=== PATIENT | female | born 1990 | race Caucasian/White ===

== ENCOUNTER 2020-05-19 14:32 | Emergency (ER) | payer OTHER, SELFPAY ==
[2020-05-19 14:34] VITALS: BP 121/70; PULSE 92; RESP 14; TEMP 36.8; O2SAT 99; BMI 24.2
--- NOTE | 2020-05-19 15:17 | ED.VIS.GEN ---
History of Present Illness Chief Complaint: Upper Extremity Injury Informant: Patient Onset: Hours Context: Sudden Onset Timing: Continuous Quality: Crush injury right thumb Location: Right thumb at work Current Severity: Severe Maximum Severity: Severe Worsened by: Injury Relieved by: Nothing Associated Symptoms: Pain Narrative: Patient is a 29-year-old [id number] woman who presents with crush injury to her right thumb. This occurred at work. Tetanus is unknown. She does report hives to amoxicillin/penicillin. She denies paresthesia, anesthesia or inability to move the thumb. She has no other complaints. Prior similar symptoms: No Recent Illness/Hospitalization: No - Past Medical History (1) No significant past medical history Status: Acute Past Medical History - Allergies and Home Meds Allergies/Adverse Reactions: Allergies amoxicillin Allergy (Verified 05/19/20 14:37) Hives Primary Care Physician: Matilde Bailey ENVIRONMENTAL ECONOMIST, ENVIRONMENTAL ECONOMIST-C [Primary Care Provider] - Prior records reviewed: No Past Medical History: None Surgical History: noncontributory Lives: Spouse/ Significant Other Smoking Status: Unknown if ever smoked Drugs: None Physical Exam Vital Signs/Narrative: Vital Signs Temp Pulse Resp BP Pulse Ox 05/19/20 14:34 98.3 F 92 14 121/70 H 99 Inital Vital Signs reviewed: Yes General: Well nourished, Well developed, Acute Distress Head: Normocephalic, Atraumatic Eyes: Perrl, EOMI Cardiovascular: Regular rate, Regular rhythm Respiratory: No distress Extremities: Tenderness Skin: Normal color, Trauma Neurological: Alert, Oriented x3, Cranial nerves II-XII grossly intact Psychological: Normal affect Diagnostic/Tx/Re-eval Chest X-Ray - ED: Read by ED Physician - 3 view x-ray of the thumb reveals a displaced tuft fracture right thumb. There is also soft tissue injury noted. There is no foreign body noted. - Medical Decision Making Tetanus was updated. X-ray was obtained to determine extent of injury. We will need to evaluate once placement is placed in an examination room since she was seen in triage. Procedures Procedure(s): Patient's thumb was anesthetized by infiltration of the the superficial radial nerve, and digital block. Patient required additional anesthesia. The wound was irrigated with 200 cc of normal saline. The radial and ulnar side of the nail was sutured prior to removing the nail because of concern of completing the amputation. 4 stitches were placed on the radial side and 4 stitches were was placed on the ulnar side. The nail was removed. There is a slight defect noted. The nailbed was closed using 5-0 Vicryl. 3 simple direct sutures were placed. The nail was cleansed. The nail was sutured back in place. Patient did receive dose of cephalexin in the emergency department. ED Disposition - Plan for ED Patient: Disposition: Home or Assisted Living Diagnosis: Open fracture of tuft of distal phalanx of right thumb, Nailbed injury, Nail avulsion, finger Instructions: ED Open Hand Fracture (Adult) Prescriptions: Clindamycin HCl [Cleocin] 300 mg PO Q6H #20 capsule Prescription Printed Hydrocodone Bitart/Apap 5-325 [[place] 5MG-325MG] 1 tablet PO Q6H PRN PRN 3 Days #10 tab PRN Reason: Pain Prescription Printed Referrals: Matilde Bailey NP, ENVIRONMENTAL ECONOMIST-C [Primary Care Provider] - [facility]GROUP OF PHYSICIANS] - 2 Days for wound check Jair Lopez MD [STAFF PHYSICIAN] - 2 Days for wound check
--- NOTE | 2020-05-19 15:20 | RAD_ITS ---
STUDY: X-RAY - RIGHT HAND, ATTENTION RIGHT THUMB. REASON FOR EXAM: Female, 29 years old. Injury/Pain TECHNIQUE: 3 view(s) of the finger were obtained. COMPARISON: None. FINDINGS: Normal metacarpal head. Normal metacarpophalangeal joint. Normal proximal phalanx. Avulsion fracture of the tuft distal phalanx of the thumb. Normal distal interphalangeal joint. Overlying soft tissue laceration. RAD/Finger(s) Min 2 Views IMPRESSION: Avulsion fracture of the tuft of the distal phalanx of the thumb with overlying soft tissue laceration. Electronically Signed: Tray Lomeli MD at 15:52 EDT , Service support ,
[2020-05-19] MEDS: Diphth,Pertuss(Acell),Tet Vac 0.5 ML Vial IM (15:55)
[2020-05-19] MEDS: Clindamycin HCl 150 MG Capsule 300 MG PO (15:55)
[2020-05-19] MEDS: Lidocaine 1% (20 ml mdv) 20 ML Vial INFILT (15:56)
[2020-05-19 18:10] VITALS: PULSE 71; RESP 16; O2SAT 100
== END 2020-05-19 18:13 | disposition home or self-care (01) ==
PROVIDERS: Emergency Provider Emergency Medicine; PCP Nurse Practitioner Family
DX: S62.521A Displaced fracture of distal phalanx of right thumb, initial encounter for closed fracture (principal); S61.101A Unspecified open wound of right thumb with damage to nail, initial encounter; X58.XXXA Exposure to other specified factors, initial encounter
CPT/HCPCS: 12002; 73140; 90471; 90715; 99284

== ENCOUNTER → 2020-06-23 16:51 | Outpatient (CLI) | payer OTHER, SELFPAY ==
[2020-06-23 09:13] VITALS: BMI 24.2
[2020-06-28 13:26] LABS: HPV Reflexed? NOT INDICATED
== END ==
PROVIDERS: PCP Nurse Practitioner Family; Visit Provider Obstetrics & Gynecology
DX: Z12.4 Encounter for screening for malignant neoplasm of cervix (principal)
CPT/HCPCS: 88175; G0145

== ENCOUNTER 2020-06-26 03:17 | Emergency (ER) | payer OTHER, SELFPAY ==
[2020-06-23 09:13] VITALS: BMI 24.2
[2020-06-26 03:18] VITALS: BP 104/69; PULSE 62; RESP 16; TEMP 37.2; O2SAT 100; BMI 23.6
--- NOTE | 2020-06-26 03:37 | US_ITS ---
HISTORY: Vaginal bleeding. Concern for miscarriage. 68 images. No comparison imaging. Beta hCG 6300. LMP February 29, 2020. Patient states confirmed IUP on 06/23/2020. Findings: Endovaginal imaging only. The endometrial stripe, within the lower uterine segment is thickened. There is thickening and heterogeneous. This thickened heterogeneous tissue may continue into the endocervical canal. Myometrium is homogeneous. The large masses or fluid collections. No gestational sac. Within the uterine fundus the endometrial stripe is 1.3 cm. The uterus measures 9.8 x 4.3 x 5.4 cm. The right ovary measures 4.2 x 2.8 x 2.7 cm. Color Doppler imaging demonstrates flow to right ovarian parenchyma. The left ovary measures 2.3 x 4.3 x 2.3 cm. Color Doppler imaging demonstrates flow to the left ovarian parenchyma. At no time is a pulse with Doppler image supplied over the endometrial canal, the lower uterine segment, or the endocervical canal. US/Transvaginal w/Preg US IMPRESSION: No IUP demonstrated. Heterogeneous endometrial stripe especially within the lower uterine segment with extension of this tissue in the endocervical canal. The findings likely represent blood. I cannot assess for retained products of conception as color Doppler imaging was not performed over the tissue within the endometrial canal or the endocervical canal. No identifiable gestational sac or fetus are perceived. at [id number] Reported and signed by: Cornel Azul MD Electronically Signed: Cornel Azul MD at 5:25 EDT Tel , Service support ,
--- NOTE | 2020-06-26 03:40 | EDS_ITS ---
HPI HPI - Female History of Present Illness Chief Complaint: Vag Bld, Preg Informant: patient Pain Quality: Positive for Cramping Current Severity: Mild Maximum Severity: Mild Bleeding Issue: Positive for Vaginal bleeding; Negative for Passing clots Onset: Days Timing: Continuous Current Severity: Similar to period Severity: Moderate Associated Symptoms Associated Symptoms: Negative for Dysuria and Frequency Test: Positive Sexually: Positive for Active P: 0 Narrative Narrative: 29-year-old female G1, P0 Ab0. Last menstrual. Was April 10. She saw her GOVERNMENT RELATIONS DIRECTOR Dr. Isabela Troy within the last week. By dates she was supposed to be 9 weeks by ultrasound she was only around 6 weeks with a pole and no heartbeat according to her GOVERNMENT RELATIONS DIRECTOR. Patient started having some vaginal spotting on and then heavy bleeding tonight that awoke her from sleep. She is never had any prior gynecological surgeries. She denies any dysuria. She denies any fever. Mild cramping but otherwise no significant pain. Prior similar symptoms: No Recent Illness/Hospitalization: No PFSH PFSH Medical History Anxiety Infertility associated with anovulation PCOS (polycystic ovarian syndrome) Home Medications sertraline 100 mg PO DAILY 05/19/20 [History Last Taken Unknown] multivitamin no.47-iron fum 27 mg-folate no.1 1 mg-dha 300 mg capsule cap PO 06/15/20 [History Last Taken Unknown] Allergy/AdvReac Type Severity Reaction Status Date / Time amoxicillin Allergy Hives Verified 06/15/20 09:12 Family History Father Hypertension Kidney disease Thyroid cancer Hemochromatosis Grandfather Myocardial infarction Grandmother Hypertension Surgical History Pilonidal cyst Social History adopted: No household members: spouse housing: house current occupational status: employed current occupation: [employer] pets and animals: Yes Smoking Status: Never smoker second hand exposure: No alcohol intake: never substance use type: does not use seatbelt use: always do you feel safe at home: Yes additional social history: - Jarod ROS ROS ED ROS Narrative Patient denies being recently ill. During this early she has had some mild nausea but otherwise is felt well. No fever. No dysuria. Constitutional Constitutional ED: Denies fever(s) Eyes Eyes: Denies change in vision ENT ENT ED: Denies sore throat Cardiovascular Cardiovascular: Denies chest pain Respiratory/Chest Respiratory/Chest: Denies dyspnea Gastrointestinal Gastrointestinal: Reports nausea; Denies abdominal pain or diarrhea Genitourinary Genitourinary ED: Denies dysuria or hematuria Musculoskeletal Musculoskeletal: Denies arthralgias or myalgias Integumentary Denies abscess or rash Neurologic Neurologic: Denies headache(s) Psychiatric Psychiatric: Denies depression Endocrine Endocrinology: Denies polyuria Hematologic/Lymphatic Hematologic/Lymphatic: Denies easy bruising Allergic/Immunologic Allergic/Immunologic ED: Denies urticaria EXAM Physical Exam Narrative Exam Narrative: Well-appearing young female. No acute distress. Vital signs stable afebrile. Initial blood pressure 104/69. HEENT exam normal. Lungs are clear. Heart regular rhythm rate about 60 no murmur. Chest wall nontender. Abdomen soft nontender normal bowel sounds no peritoneal signs. No suprapubic tenderness on exam. Moving all 4 extremities. Back nontender. Neurologically she is awake and alert with no focal motor deficits. Pelvic exam done with female nurse and present in room. External exam unremarkable. Vaginal bleeding in the vaginal vault. No significant clots. No lesions. No discharge. On bimanual exam she had absolutely no uterine nor any adnexal tenderness. This appears to be a miscarriage and not an ectopic by exam. Const Vital Signs: 06/26/20 03:18 Temperature 98.9 F Temperature Source Temporal Pulse Rate 62 Respiratory Rate 16 Blood Pressure 104/69 Blood Pressure Mean 80 Pulse Ox 100 Oxygen Delivery Method Room Air Positive well nourished and well developed General Appearance ED: well developed HEENT Negative for trauma Eyes PERRL and EOMs intact bilaterally Neck no lymphadenopathy and supple Chest Wall inspection of chest normal Resp normal respiratory effort and clear to auscultation bilaterally Cardio regular rate, regular rhythm and no murmurs GI normal to inspection, nondistended, normoactive bowel sounds, soft to palpation, non-tender and non-distended Auscultation: normoactive bowel sounds no CVA tenderness External Female Exam: normal appearance of the urethra Speculum Exam - Vagina: Negative for vaginal tenderness Speculum Exam - Cervix: cervical os open and cervical bleeding; Negative for tissue present in the cervical os Bimanual Exam - Vag & Uterus: normal bimanual exam, normal vaginal palpation, normal cervical palpation and uterus non-tender; Negative for cervical motion tenderness, cervical tenderness, uterus tender or uterus absent Bimanual Exam - Adnexa, Other: normal adnexae Back/Spine no CVA tenderness Extremity normal to inspection Neuro oriented x3 Sensorium / Orientation: alert, oriented to person, oriented to place and oriented to time Psych mental status grossly normal Skin no rashes or lesions noted MDM MDM MDM Narrative Medical decision making narrative: 29-year-old female G1, P0 Ab0. Last menstrual period 04/10/2020. Started having spotting on . Heavier vaginal bleeding tonight. Other than mild cramping no pain. Spoke with her GOVERNMENT RELATIONS DIRECTOR prior to the patient's arrival concern is for miscarriage. She will have an ultrasound and screening labs obtained. Clinical impression: Acute vaginal bleeding secondary to acute spontaneous Lab Data Attestation: I reviewed the patient's lab results. Lab results narrative: CBC is unremarkable hemoglobin is 12.4. Normal platelets. Labs: Laboratory Results - last 24 hr 06/26/20 06/26/20 06/26/20 03:22 03:22 03:22 WBC 11.8 H RBC 4.31 Hgb 12.4 Hct 36.3 L MCV 84.2 MCH 28.8 MCHC 34.2 RDW Std Deviation 39.8 RDW Coeff of Samir 12.8 Plt Count 335 MPV 9.0 HCG, Quant 6300 H Blood Type O POSITIVE CBC unremarkable hemoglobin 12.4. Patient's blood type is O+. And quant is 6300. On repeat exam at 5:28 AM she is resting comfortably. She has had continued bleeding but at this time its not real heavy. She is not currently having any significant pain. Awaiting ultrasound results. Pelvic ultrasound shows no signs of an intrauterine . Read by the radiologist. Repeat exam the patient is doing well at 5:40 AM. I discussed with her GOVERNMENT RELATIONS DIRECTOR Dr. Rajesh Parks. Patient will get a dose of p.o. Cytotec. She and her are comfortable with her being discharged home. They already have a scheduled appointment see Dr. Rajesh Parks Lm morning who is also comfortable with the plan. Patient knows return if she is feeling worse or has heavier bleeding Radiography Diagnostic Testing: Radiology Impression Obstetrics Ultrasound 06/26/20 03:37 IMPRESSION: No IUP demonstrated. Heterogeneous endometrial stripe especially within the lower uterine segment with extension of this tissue in the endocervical canal. The findings likely represent blood. I cannot assess for retained products of conception as color Doppler imaging was not performed over the tissue within the endometrial canal or the endocervical canal. No identifiable gestational sac or fetus are perceived. at 0526 Reported and signed by: Cornel Azul MD Electronically Signed: Cornel Azul MD at 5:25 EDT Tel , Service support , Discharge Plan Triage Chief Complaint: Vag Bld, Preg ED Provider: Brandon Lemus Dx/Rx/DC Orders Clinical Impression: Complete miscarriage Instructions: ED MISCARRIAGE Completed Prescriptions: No Action PNV-DHA 27 mg iron-1 mg -300 mg capsule PO RF: 0 sertraline 100 MG tablet 100 mg PO DAILY RF: 0 Primary Care Provider: Matilde Bailey NP Referrals: Isabela Troy MD [STAFF PHYSICIAN] - 1 Day (Keep your scheduled appointment to see Dr. Isabela Troy on Saturday.) Matilde Bailey PL SQL DEVELOPER, PL SQL DEVELOPER-C [Primary Care Provider] - Activity Restrictions/Additional Instructions: Follow-up with your GOVERNMENT RELATIONS DIRECTOR on Saturday. Rest and relax Saturday at home. No heavy lifting or exercise. Plenty of fluids and rest. Tylenol and/or Motrin for any pain. Return to the emergency department if you are feeling significantly worse, heavier bleeding, passing large clots or feel lightheaded or dizzy. Disposition Disposition: Home, self care
[2020-06-26 03:49] LABS: Hematocrit 36.3 % (37-47); Hemoglobin 12.4 g/dL (12.0-15.0); Mean Corp Hgb Conc 34.2 g/dL (32-36); Mean Corpuscular Hgb 28.8 pg (27.0-32.0); Mean Corpuscular Volume 84.2 fL (81-99); Platelet Count 335 K/mm3 (150-450); RBC Distribution Width CV 12.8 % (11.6-14.6); RBC Distribution Width SD 39.8 fl (35.1-43.9); Red Blood Count 4.31 M/mm3 (4.2-5.4); White Blood Count 11.8 K/mm3 (4.4-11.0)
[2020-06-26 04:36] LABS: hCG Titer Quant., Serum 6300 mIU/mL (1-3)
[2020-06-26] MEDS: miSOPROStol 200 MCG Tablet 800 MCG PO (05:59)
[2020-06-26 06:07] VITALS: BP 102/65; PULSE 70; RESP 16; O2SAT 100
== END 2020-06-26 06:07 | disposition home or self-care (01) ==
PROVIDERS: Emergency Provider Emergency Medicine; PCP Nurse Practitioner Family
DX: O03.9 Complete or unspecified spontaneous abortion without complication (principal)
CPT/HCPCS: 76817; 84702; 85027; 86900; 86901; 99284; A4216

== ENCOUNTER → 2020-07-21 11:25 | Outpatient (CLI) | payer OTHER, SELFPAY ==
[2020-07-21 11:09] VITALS: BMI 23.3
[2020-07-21 12:40] LABS: hCG Titer Quant., Serum 3 mIU/mL (1-3)
== END ==
PROVIDERS: PCP Nurse Practitioner Family; Referring Provider Obstetrics & Gynecology; Visit Provider Obstetrics & Gynecology
DX: O03.9 Complete or unspecified spontaneous abortion without complication (principal); Z3A.00 Weeks of gestation of pregnancy not specified
CPT/HCPCS: 36415; 84702

== ENCOUNTER → 2020-09-10 10:39 | Outpatient (CLI) | payer OTHER, SELFPAY ==
[2020-07-21 11:09] VITALS: BMI 23.3
[2020-09-12 07:51] LABS: Progesterone Level 0.31 ng/mL (See Comment)
== END ==
PROVIDERS: PCP Nurse Practitioner Family; Referring Provider Obstetrics & Gynecology; Visit Provider Obstetrics & Gynecology
DX: E28.2 Polycystic ovarian syndrome (principal)
CPT/HCPCS: 36415; 84144

== ENCOUNTER → 2020-11-01 12:55 | Outpatient (CLI) | payer OTHER, SELFPAY ==
[2020-11-01 14:35] LABS: Progesterone Level 0.46 ng/mL (See Comment)
== END ==
PROVIDERS: PCP Nurse Practitioner Family; Referring Provider Obstetrics & Gynecology; Visit Provider Obstetrics & Gynecology
DX: E28.2 Polycystic ovarian syndrome (principal)
CPT/HCPCS: 36415; 84144

== ENCOUNTER → 2021-02-04 09:49 | Outpatient (CLI) | payer OTHER, SELFPAY | PROVIDERS: PCP Nurse Practitioner Family; Referring Provider Obstetrics & Gynecology; Visit Provider Obstetrics & Gynecology | DX: Z32.01 Encounter for pregnancy test, result positive (principal) | CPT/HCPCS: 36415; 84702 ==

== ENCOUNTER → 2021-02-06 18:26 | Outpatient (CLI) | payer OTHER, SELFPAY | PROVIDERS: PCP Nurse Practitioner Family; Visit Provider Obstetrics & Gynecology | DX: Z32.01 Encounter for pregnancy test, result positive (principal) | CPT/HCPCS: 36415; 84702 ==

== ENCOUNTER → 2021-02-09 09:43 | Outpatient (CLI) | payer OTHER, SELFPAY ==
--- NOTE | 2021-02-09 09:45 | US_ITS ---
STUDY: FIRST TRIMESTER OBSTETRICAL ULTRASOUND REASON FOR EXAM: Female, 30 years old dating. Irregular cycles. LMP: 12/11/2020 TECHNIQUE: Transabdominal TECHNICAL QUALITY: Adequate. PRIOR ULTRASOUND: None. FINDINGS: There is visualization of a single gestational sac in a normal intrauterine position. The mean sac diameter (MSD) measures 3.89 cm, indicating an estimated gestational age (EGA) of 9 weeks, 1 days. The gestational sac shape is within normal limits. There is a visualized yolk sac. The yolk sac measures 4.7 mm. The placenta is non-visualized. There is visualization of a live embryo. The crown-rump length (CRL) measures 2.02 cm, indicating an estimated gestational age (EGA) of 8 weeks, 3 days. There is demonstrated cardiac activity with a heart rate of 173 bpm. The estimated gestation age (EGA) by LMP is 10 weeks, 4 days. The estimated date of delivery (YUNG) by LMP is 09/03/2021. The estimated gestation age (EGA) by US is 8 weeks, 5 days. The estimated date of delivery (YUNG) by US is 09/16/2021. The uterus measures 10.3 cm x 7.8 cm x 5.6 cm. There is no demonstrated uterine fibroid. The cervix is closed. The right ovary measures 3.4 cm x 2.4 cm x 2.4 cm. There is no right ovarian cyst. There is no visualized right adnexal mass or complex lesion. The left ovary measures 3.7 cm x 2.5 cm x 3.5 cm. There is no left ovarian cyst. There is no visualized left adnexal mass or complex lesion. There is no fluid in the cul de sac. US/Init OB < 14Wks US IMPRESSION: Single live intrauterine gestation with a mean gestational age of 8 weeks and 5 days. Electronically Signed: Tray Lomeli MD at 11:02 EST , Service support ,
== END ==
PROVIDERS: PCP Nurse Practitioner Family; Referring Provider Obstetrics & Gynecology; Visit Provider Obstetrics & Gynecology
DX: Z34.91 Encounter for supervision of normal pregnancy, unspecified, first trimester (principal)
CPT/HCPCS: 76801

== ENCOUNTER 2021-03-01 14:58 | Outpatient (CLI) | payer OTHER, SELFPAY ==
[2021-03-01 16:06] LABS: NATERA MAILED SPECIMEN
[2021-03-04 20:08] LABS: Chlamydia By Nucleic Acid AMP Negative (Negative)
[2021-03-05 07:55] LABS: Gonococcus By Nucleic Acid AMP Negative (Negative)
== END 2021-03-01 23:59 | disposition short-term general hospital (02) ==
PROVIDERS: PCP Nurse Practitioner Family; Referring Provider Obstetrics & Gynecology; Visit Provider Obstetrics & Gynecology
DX: Z34.90 Encounter for supervision of normal pregnancy, unspecified, unspecified trimester (principal)
CPT/HCPCS: 36415; 87491; 87591

== ENCOUNTER 2021-03-22 14:17 | Outpatient (CLI) | payer OTHER, SELFPAY ==
[2021-03-22 14:30] LABS: Absolute Lymphocyte Count 1.52 X10^3/uL (0.83-4.51); Absolute Neutrophil Count 3.2 X10^3/uL (2.0-7.7); Basophil# 0.02 X10^3/uL; Basophil% 0.4 % (0-1); Eosinophil# 0.14 X10^3/uL; Eosinophils% 2.7 % (0-5); Hematocrit 33.6 % (37-47); Hemoglobin 12.1 g/dL (12.0-15.0); Lymphocyte # 1.52 X10^3/ul (0.83-4.51); Mean Corpuscular Hgb 29.5 pg (27.0-32.0); Mean Platelet Vol. 8.6 fl (6.2-12.0); Monocyte# 0.34 X10^3/uL; Monocyte% 6.5 % (0-10); NRBC Flagged by Analyzer 0 % (0-5); Neutrophil # 3.22 X10^3/uL (2.7-7.7); Neutrophil % 61.2 % (47-70); Platelet Count 264 K/mm3 (150-450); RBC Distribution Width CV 13.1 % (11.6-14.6); RBC Distribution Width SD 39.2 fl (35.1-43.9); White Blood Count 5.3 K/mm3 (4.4-11.0)
[2021-03-22 15:45] LABS: HIV - WCH Non-Reactive (Nonreactive); Hepatitis B Surface Antigen Non-Reactive (Nonreactive); Hepatitis C Antibody Non-Reactive (Nonreactive); Rubella IgG Reactive (Nonreactive); Syphilis Antibodies Non-reactive
[2021-03-22 18:13] LABS: Amphetamine Urine VISTA NEGATIVE (<1000 ng/mL); Barbiturate Urine VISTA NEGATIVE (< 200 ng/mL); Benzodiazepine Urine VISTA NEGATIVE (< 200 ng/mL); Cocaine Urine VISTA NEGATIVE (< 300 ng/mL); Ecstacy Urine VISTA NEGATIVE (< 500 ng/mL); Methadone Urine VISTA NEGATIVE (< 300 ng/mL); PCP Urine VISTA NEGATIVE (< 25 ng/mL); THC Urine VISTA NEGATIVE (< 50 ng/mL); Vista UDS pH Range 6
== END 2021-03-22 23:59 | disposition short-term general hospital (02) ==
LOC: PAVLAB 14:18
PROVIDERS: PCP Nurse Practitioner Family; Referring Provider Obstetrics & Gynecology; Visit Provider Obstetrics & Gynecology
DX: Z34.90 Encounter for supervision of normal pregnancy, unspecified, unspecified trimester (principal)
CPT/HCPCS: 36415; 80307; 85025; 86703; 86762; 86780; 86803; 86850; 86900; 86901; 87086; 87340

== ENCOUNTER 2021-06-15 13:55 | Outpatient (CLI) | payer OTHER, SELFPAY ==
[2021-06-15 14:21] LABS: Absolute Lymphocyte Count 1.76 X10^3/uL (0.83-4.51); Absolute Neutrophil Count 7.9 X10^3/uL (2.0-7.7); Basophil# 0.06 X10^3/uL; Basophil% 0.6 % (0-1); Eosinophil# 0.47 X10^3/uL; Eosinophils% 4.4 % (0-5); Hematocrit 34.7 % (37-47); Hemoglobin 11.7 g/dL (12.0-15.0); Lymphocyte # 1.76 X10^3/ul (0.83-4.51); Lymphocyte % 16.3 % (19-41); Mean Corp Hgb Conc 33.7 g/dL (32-36); Mean Platelet Vol. 8.7 fl (6.2-12.0); Monocyte% 4.6 % (0-10); NRBC Flagged by Analyzer 0 % (0-5); Neutrophil # 7.91 X10^3/uL (2.7-7.7); Neutrophil % 73.5 % (47-70); Platelet Count 277 K/mm3 (150-450); RBC Distribution Width CV 13.7 % (11.6-14.6); RBC Distribution Width SD 44.5 fl (35.1-43.9); White Blood Count 10.8 K/mm3 (4.4-11.0)
[2021-06-15 14:32] LABS: Glucose Challenge Gest 1H 50g 137 mg/dL (70-140)
== END 2021-06-15 23:59 | disposition home or self-care (01) ==
LOC: PAVLAB 13:55
PROVIDERS: PCP Nurse Practitioner Family; Referring Provider Nurse Practitioner Women's Health; Visit Provider Nurse Practitioner Women's Health
DX: Z13.1 Encounter for screening for diabetes mellitus (principal)
CPT/HCPCS: 36415; 82950; 85025

== ENCOUNTER → 2021-06-29 | Outpatient (CLI) | payer OTHER, SELFPAY ==
[2021-06-29 10:30] LABS: Glucose GTT-Gestation. Fasting 80 mg/dL (<105)
[2021-06-29 11:40] LABS: Glucose GTT-Gestational 1 Hr 147 mg/dL (<190)
[2021-06-29 12:32] LABS: Glucose GTT-Gestational 2 Hr 117 mg/dL (<165)
[2021-06-29 14:14] LABS: Glucose GTT-Gestational 3 Hr 91 L (<145)
== END | disposition home or self-care (01) ==
LOC: LAB 09:51
PROVIDERS: PCP Nurse Practitioner Family; Visit Provider Obstetrics & Gynecology
DX: O99.810 Abnormal glucose complicating pregnancy (principal)
CPT/HCPCS: 36415; 82951; 82952

== ENCOUNTER → 2021-08-25 | Outpatient (CLI) | payer OTHER, SELFPAY | END | disposition home or self-care (01) | PROVIDERS: PCP Nurse Practitioner Family; Referring Provider Obstetrics & Gynecology; Visit Provider Obstetrics & Gynecology | DX: Z34.90 Encounter for supervision of normal pregnancy, unspecified, unspecified trimester (principal) | CPT/HCPCS: 87081 ==

== ENCOUNTER 2021-09-12 08:57 | Inpatient (IN) | payer OTHER, SELFPAY ==
[2021-09-12] VITALS (43 sets, daily range): BP systolic 105–149; BP diastolic 56–97; PULSE 63–102; TEMP 36.4–37; O2SAT 78–100; BMI 31.4
[2021-09-12 08:57] LABS: ROM Internal Control Test YES-OK TO RESULT pt. (Internal QC); ROM Patient Test POSITIVE (Negative)
--- NOTE | 2021-09-12 09:03 | HP.PCM.OB_ITS ---
HPI - General General Date of Admission: 09/12/21 HPI Narrative AMPARO YOUNG, is a 31 y/o @ 39 weeks 3 days who presents to L&D with leaking fluid and contraction pain 06/04. Her ROM plus was noted to be positive. 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 PCOS (polycystic ovarian syndrome) Supervision of normal Home Medications sertraline 100 mg tablet 100 mg PO DAILY 05/19/20 [History Last Taken Unknown] multivitamin no.47-iron fum 27 mg-folate no.1 1 mg-dha 300 mg capsule (PNV-DHA) cap PO 06/15/20 [History Last Taken Unknown] ferrous sulfate 325 mg (65 mg iron) tablet 325 mg PO DAILY 05/05/21 [History Last Taken Unknown] Allergy/AdvReac Type Severity Reaction Status Date / Time amoxicillin Allergy Hives Verified 09/01/21 15:01 Family History Father Hypertension Kidney disease Thyroid cancer Hemochromatosis Grandfather Myocardial infarction Grandmother Hypertension Surgical History Pilonidal cyst Social History adopted: No household members: spouse housing: house current occupational status: employed current occupation: [employer] pets and animals: Yes Smoking Status: Never smoker second hand exposure: No alcohol intake: never substance use type: does not use seatbelt use: always do you feel safe at home: Yes additional social history: - Jarod History 2 Elective abortions Hx Para 0 Spontaneous abortions 1 Hx # Term Pregnancies Ectopic pregnancies Hx # Pregnancies Multiple births # of living children Visit Details Expected Delivery Route/Plan Labor Preferences- CB/BF classes: [] labor support person: [] labor intervention preferences: [] pain management options preferred: [] cut cord/dad catch: [] : [] PP control planned: [] discussed possible routes of delivery and associated risks: [] special requests: [] Plans Covid status: [] Flu vaccine: [] Tdap vaccine: [] Rhogam: [] LARC form signed: [] Problem list reviewed and updated with the most current plan of care details and appropriate orders placed. Relevant counseling for the gestational age provided. Continue routine care and follow up unless otherwise noted in visit notes/problem list details OB Flowsheet Initial Weight: Not Recorded Date -?-?-?-?-?-?-?-?-?-?-?-?- EGA Weight BP Urine Prot -?-?-?-?-?-?-?-?-?-?-?-?- Glucose FHR FuHt Pres Dilation -?-?-?-?-?-?-?-?-?-?-?-?- Effaced St Visit Note 03/01/21 -?-?-?-?-?-?-?-?-?-?-?--?- 11w 4d 125 lb 120/82 -?-?-?-?-?-?-?-?-?-?-?-?- 145 -?-?-?-?-?-?-?-?-?-?-?-?- SM- no vb crampi ng doing well 03/22/21 -?-?-?-?-?-?-?-?-?-?-?-?- 14w 4d 124 lb 8 oz Negative -?-?-?-?-?-?-?-?-?-?-?-?- Negative 135 -?-?-?-?-?-?-?-?-?-?-?-?- JV- no lof, vagi nal bleeding, or cramping. pt has a cold but did not test for covid. had a lot of congestion and some nausea over a week ago. plan to take baby asa in the case it was covid. 04/19/21 -?-?-?-?-?-?-?-?-?-?-?-?- 18w 4d 133 lb 6 oz 120/78 Nega tive -?-?-?-?-?-?-?-?-?-?-?-?- Negative 140 -?-?-?-?-?-?-?-?-?-?-?-?- JV- no cramping or bleeding, no complaints. ultrasound scheduled for 04/27. 05/05/21 -?-?-?-?-?-?-?-?-?-?-?-?- 20w 6d 112/64 -?-?-?-?-?-?-?-?-?-?-?-?- 140 -?-?-?-?-?-?-?-?-?-?-?-?- SM- no vb lof co dec fm today 05/18/21 -?-?-?-?-?-?-?-?-?-?-?-?- 22w 5d 139 lb 2 oz 110/60 Nega tive -?-?-?-?-?-?-?-?-?-?-?-?- Negative 143 -?-?-?-?-?-?-?-?-?-?-?-?- MH-No VB, LOF. G ood FM. Reviewed anatomy US. 06/15/21 -?-?-?-?-?-?-?-?-?-?-?-?- 26w 5d 147 lb 120/80 Negative -?-?-?-?-?-?-?-?-?-?-?-?- Negative 130 -?-?-?-?-?-?-?-?-?-?-?-?- JV- no lof, vagi nal bleeding, or dec fm. 1 cm lesion that is flat yet warty appearing on the left breast overlying inferior aspect of the nipple. pt states that this is growing since she got . 06/29/21 -?-?-?-?-?-?-?-?-?-?-?-?- 28w 5d 151 lb 2 oz 126/78 Nega tive -?-?-?-?-?-?-?-?-?-?-?-?- Negative 145 -?-?-?-?-?-?-?-?-?-?-?-?- JV- no lof, vagi nal bleeding, or dec fm. JV- no lof, vaginal bleeding , or dec fm. normal 3 hr gtt 07/14/21 -?-?-?-?-?-?-?-?-?-?-?-?- 30w 6d 156 lb 128/84 Negative -?-?-?-?-?-?-?-?-?-?-?-?- Negative 150 -?-?-?-?-?-?-?-?-?-?-?-?- JV- no lof, vagi nal bleeding ,or de fm. no complaints today. 07/28/21 -?-?-?-?-?-?-?-?-?-?-?-?- 32w 6d 160 lb 8 oz 127/79 Nega tive -?-?-?-?-?-?-?-?-?-?-?-?- Negative 161 32 Cephalic -?-?-?-?-?-?-?-?-?-?-?-?- JV- no lof vagin al bleeding, or dec fm. pt works on a [employer] and wants to know when to slow down. Instructions given. 08/11/21 -?-?-?-?-?-?-?-?-?-?-?-?- 34w 6d 163 lb 6 oz 122/78 Nega tive -?-?-?-?-?-?-?-?-?-?-?-?- Negative 159 35 Breech -?-?-?-?-?-?-?-?-?-?-?-?- JV- no lof, v ag inal bleeding, or dec fm. breech on exam today. will re-assess next visit. 08/25/21 -?-?-?-?-?-?-?-?-?-?-?-?- 36w 6d 169 lb 2 oz 130/88 Nega tive -?-?-?-?-?-?-?-?-?-?-?-?- Negative 145 37 Cephalic 0 -?-?-?-?-?-?-?-?-?-?-?-?- SM- no vb lof go od fm no regular ctx gbs done 09/01/21 -?-?-?-?-?-?-?-?-?-?-?-?- 37w 6d 171 lb 114/70 Negative -?-?-?-?-?-?-?-?-?-?-?-?- Negative 140 38 Cephalic 0 .5 -?-?-?-?-?-?-?-?-?-?-?-?- SM- no vb lof go od fm no regular ctx 09/08/21 -?-?-?-?-?-?-?-?-?-?-?-?- 38w 6d 171 lb 114/72 Negative -?-?-?-?-?-?--?-?-?-?-?-?- Negative 130 39 Cephalic 0 .5 -?-?-?-?-?-?-?-?-?-?-?-?- SM- no vb lof go od fm no regualr ctx ROS Constitutional Constitutional: Denies change in weight, fatigue, fever(s), headache(s), poor appetite or weakness Eyes Eyes: Denies blurry vision, change in vision, seeing flashes or spots in vision ENT HEENT: Denies dizziness, headache(s), loss taste/smell or sore throat Cardiovascular Cardiovascular: Denies chest pain, dizziness, dyspnea, irregular heart rhythm, leg edema, palpitations, rapid heart rate or vomiting Respiratory/Chest Respiratory/Chest: Denies chest tightness, cough, dyspnea or breast pain Gastrointestinal Gastrointestinal: Denies abdominal pain, anorexia, constipation, cramping, diarrhea, hemorrhoids, vomiting or weight changes Genitourinary Genitourinary: Denies dysuria, flank pain, genital lesions, genital pain, urinary frequency or urinary urgency Musculoskeletal Musculoskeletal: Denies back pain, difficulty walking, joint pain, limited range of motion, muscle cramps or numbness Integumentary Integumentary: Denies lesions or unusual bruising Neurologic Neurologic: Denies abnormal movements, abnormal speech, dizziness, numbness, seizure-like activity or syncope Psychiatric Psychiatric: Denies anxiety, behavioral changes, change in appetite, change in libido, cognitive impairment, confusion, depression, difficulty concentrating, hallucinations or suicidal thoughts Endocrine Endocrinology: Denies excessive sweating, polydipsia or polyuria Hematologic/Lymphatic Hematologic/Lymphatic: Denies easy bleeding, easy bruising or lymphadenopathy Allergic/Immunologic Allergic/Immunologic: Denies itchy eyes, lip swelling, seasonal rhinorrhea, rhinitis, throat swelling, tongue swelling, eczemia, wheezing or asthma Vital Signs Vital Signs Vital Signs: 09/12/21 08:18 09/12/21 08:18 09/12/21 08:19 Temperature Temperature Source Temporal Pulse Rate 94 Blood Pressure 131/77 H BP Systolic 131 BP Diastolic 77 Pulse Ox 09/12/21 08:19 09/12/21 08:19 09/12/21 08:19 Temperature Temperature Source Pulse Rate 94 Blood Pressure 131/77 H BP Systolic 131 BP Diastolic 77 Pulse Ox 98 09/12/21 08:19 Temperature 98.2 F Temperature Source Pulse Rate Blood Pressure BP Systolic BP Diastolic Pulse Ox Weight Weight: 171 lb 15.369 oz Body Mass Index (BMI) 31.4 Physical Exam Const alert, oriented x3, no apparent distress and healthy appearing General Appearance: cooperative; Negative for anxious HEENT normocephalic Face and Sinus: normal facial exam Eyes EOMs intact bilaterally and no scleral icterus General Eye: normal appearance of both eyes Neck full ROM and supple Lymph Lymphatic: no lymphadenopathy noted Chest Chest: abnormal inspection of the chest Resp normal respiratory effort Effort and Inspection: able to speak in complete sentences Cardio regular rate GI soft to palpation and non-tender Inspection: gravid Palpation: soft; Negative for tender external exam normal Amniotic Fluid: ROM+plus positive + and other cx: 2/80/-2 cephalic. Back/Spine no CVA tenderness Extremity normal to inspection, full ROM and no clubbing, cyanosis or edema General Extremity: Negative for calf tenderness or edema Skin Lesions: no lesions Rashes: no rashes Psych mental status grossly normal Labs Labs Labs: Blood Type O POSITIVE Antibody Screen NEGATIVE Hct 34.7 % (37-47) L Hgb 11.7 g/dL (12.0-15.0) L Obstetrics US Syphilis Total Ab Non-reactive Rubella IgG Antibody Reactive (Nonreactive) Hep Bs Antigen Non-Reactive (Nonreactive) Chlamydia DNA (IRMA) Negative (Negative) Neisseria gonorrhoeae DNA (IRMA) Negative (Negative) HIV 1&2 Antibody Non-Reactive (Nonreactive) Glucose 1 Hr 50 gm 137 mg/dL (70-140) Assessment & Plan (1) Abnormal glucose affecting : COMMENT: 3hr GTT nl (2) Infertility associated with anovulation: COMMENT: 5+ years; previously on clomid and femara (3) Supervision of normal : QUALIFIERS: Normal : normal first Trimester: second trimester Qualified Code(s): Z34.02 - Encounter for supervision of normal first , second trimester COMMENT: PRR YUNG: 09/16/21 Boy Jaun Spouse: Jarod (4) Carrier of hemochromatosis HFE gene mutation: COMMENT: Father has the disease. Patient is a carrier of the gene. FOB negative (5) : QUALIFIERS: Weeks of gestation: 37 weeks Qualified Code(s): Z3A.37 - 37 weeks gestation of COMMENT: anatomy nl, NIPT low risk; carrier testing done at a different facility. GBS neg (6) Anxiety: COMMENT: Zoloft 100mg QD- patient is doing well PLAN: Plan Patient presents IAL, plan expectant management for , pitocin/AROM PRN if needed (forebag present). Pain management: plans epidural. GBS negatice. Management of any complications: [none] I have reviewed the [facility] and made any clinically relevant updates.
[2021-09-12] MEDS: Lactated Ringers 1,000 ML 50 ML IV (09:55)
[2021-09-12 10:15] LABS: Absolute Lymphocyte Count 1.74 X10^3/uL (0.83-4.51); Absolute Neutrophil Count 9.8 X10^3/uL (2.0-7.7); Basophil# 0.04 X10^3/uL; Basophil% 0.3 % (0-1); Eosinophil# 0.18 X10^3/uL; Eosinophils% 1.4 % (0-5); Hematocrit 37.2 % (37-47); Hemoglobin 12.9 g/dL (12.0-15.0); Lymphocyte # 1.74 X10^3/ul (0.83-4.51); Lymphocyte % 13.7 % (19-41); Mean Corp Hgb Conc 34.7 g/dL (32-36); Mean Corpuscular Hgb 30.6 pg (27.0-32.0); Mean Corpuscular Volume 88.2 fL (81-99); Mean Platelet Vol. 9.7 fl (6.2-12.0); Monocyte# 0.76 X10^3/uL; NRBC Flagged by Analyzer 0 % (0-5); Neutrophil # 9.81 X10^3/uL (2.7-7.7); Neutrophil % 77.6 % (47-70); Platelet Count 228 K/mm3 (150-450); RBC Distribution Width CV 13.2 % (11.6-14.6); RBC Distribution Width SD 42.5 fl (35.1-43.9); Red Blood Count 4.22 M/mm3 (4.2-5.4); White Blood Count 12.7 K/mm3 (4.4-11.0)
[2021-09-12] MEDS: 0.9% Saline Lock 10 ML Syringe IV ×4 (10:46→21:46)
[2021-09-12] MEDS: Oxytocin 30 units/NS 500 ml 30 UNITS/500 ML IV.SOLN IV (12:47)
--- NOTE | 2021-09-12 15:29 | PCM.PN.BLA ---
Progress Note note from 12:00: pt is sitting up in chair and states that her pain is minimal to none. current tracing: FHT: Moderate variability reactive no decelerations category I tracing [place]: irregular Contractions cx: 2.5/80/-1, forebag ruptured with blood tinged fluid (scant) A/P: plan to start pitocin now. epidural prn.
[2021-09-12] MEDS: LACTATED RINGERS 500 ML 999 ML IV ×2 (17:03→21:34)
[2021-09-12] MEDS: fentaNYL-bupivacaine (epidural) 100 ML BAG EPIDURAL ×2 (17:35→21:46)
--- NOTE | 2021-09-12 17:35 | PCM.PN.BLA ---
Progress Note pt is now requesting an epidural. current tracing: FHT: 130'sModerate variability reactive no decelerations category I tracing [place]: q1-2 min Contractions cx: unchanged (/) reviewed tracing abnormalities since last note: some variable decels present. A/P: continue pitocin epidural now.
[2021-09-12] MEDS: Ondansetron 4 MG/2 ML Vial IV (18:36)
[2021-09-12] MEDS: Lactated Ringers 1,000 ML 200 ML IV (19:44)
[2021-09-12] MEDS: proCHLORPERazine 10 MG/2 ML Vial IV (21:46)
[2021-09-13] VITALS (81 sets, daily range): BP systolic 108–138; BP diastolic 66–83; PULSE 84–128; RESP 16–17; TEMP 36.2–37.9; O2SAT 88–100
--- NOTE | 2021-09-13 05:49 | PCM.DC ---
Discharge Instructions Diet Discharge Diet: No restrictions Activity Discharge Activity: Return to Normal Activity, May Not Drive (while taking narcotic pain medications.) and May Shower May resume sexual activity in: 4-6 weeks Dressing / Incision Call your doctor if your incision/area has: Continuous Slow Oozing, Sudden Increased Bleeding, Increased Pain/ Swelling, Increased Redness and Foul Smelling Discharge Follow Up Care Please Follow Up With: Korin Copeland, When: Call [phone] to make an appointment with your doctor in 6 weeks. If you had elevated blood pressure or 4th degree laceration, you will need to be seen in 2 weeks. Test Results: Test results from this visit will be discussed in further detail at your follow-up appointment, if applicable. Discharge Plan Admission Admit Date/Time: 09/12/21 08:57 Primary Reason for Your Visit: vaginal delivery Attending Provider: Korin Copeland Primary Care Provider: Matilde Bailey NP Discharge Orders/Prescriptions Prescriptions: New ibuprofen 600 mg tablet 600 mg PO Q6H PRN (Reason: pain) 7 Days Qty: 28 0RF Rx Instructions: one tab every 6 hrs as needed for mild to moderate pain Continued PNV-DHA 27 mg iron-1 mg -300 mg capsule 1 cap PO DAILY ferrous sulfate 325 mg (65 mg iron) tablet 325 mg PO DAILY sertraline 100 MG tablet 100 mg PO DAILY Discontinued aspirin [Baby Aspirin] 81 mg Tablet,Chewable 81 mg PO DAILY Referrals / Follow Up: Matilde Bailey NP, [facility] [Primary Care Provider] - Disposition Disposition (needs filled in before D/C Order can be placed): Home, Self Care
[2021-09-13] MEDS: Acetaminophen 500 MG Tablet PO (06:45)
[2021-09-13] MEDS: Lactated Ringers 1,000 ML 200 ML IV (07:43)
[2021-09-13] MEDS: Oxytocin 30 units/NS 500 ml 30 UNITS/500 ML IV.SOLN 334 UNITS IV (07:57)
--- NOTE | 2021-09-13 08:11 | EX.PCM.OBRPT ---
Assessment & Plan (1) Abnormal glucose affecting : COMMENT: 3hr GTT nl (2) Infertility associated with anovulation: COMMENT: 5+ years; previously on clomid and femara (3) Supervision of normal : QUALIFIERS: Normal : normal first Trimester: second trimester Qualified Code(s): Z34.02 - Encounter for supervision of normal first , second trimester COMMENT: PRR YUNG: 09/16/21 Luís Zamorano Spouse: Jarod (4) Carrier of hemochromatosis HFE gene mutation: COMMENT: Father has the disease. Patient is a carrier of the gene. FOB negative (5) : QUALIFIERS: Weeks of gestation: 37 weeks Qualified Code(s): Z3A.37 - 37 weeks gestation of COMMENT: anatomy nl, NIPT low risk; carrier testing done at a different facility. GBS neg (6) Anxiety: COMMENT: Zoloft 100mg QD- patient is doing well Maternal Data Information YUNG Calculator Estimated Delivery Date Method Current WG Current Estimate 09/16/21 Ultrasound #1 39w 4d Final YUNG: 09/16/21 Final YUNG Source: US <20 weeks Vaginal Delivery Maternal Presentation Maternal Presentation: Spontaneous Rupture of Membranes Type of Induction: Pitocin Operative Information Date of Procedure: 09/13/21 Pre-Operative Diagnosis: @ 39 weeks 4 days, SROM, maternal exhaustion Post-Operative Diagnosis: @ 39 weeks 4 days, SROM, maternal exhaustion Surgery / Procedure Performed: Vacuum Assisted Vaginal Delivery Type of Anesthesia: Epidural Drain: Horan to straight drain Estimated Blood Loss: 300cc Findings Description of Procedure: This is a 31year old woman who was admitted to labor and delivery for SROM on 09/12/21. The decision was made to perform a vacuum extraction due to maternal exhaustion after pushing for 3 hours. The risk benefits and alternatives of the procedure were discussed with the patient and verbal consent was obtained. The infant was noted to be at a +3 station, the cervix was completely dilated. The 's head was noted to be in the right occiput anterior presentation. The vacuum was placed in the correct placement in front of the posterior fontanelle. This was confirmed digitally. With the patient's next contraction, the vacuum was inflated and a gentle downward pressure was used to assist with bringing the baby's head to a +3 station. With 1 pull and 0 pop offs. The head was delivered atraumatically. A nuchal cord was noted and tight. The was delivered through the cord. The anterior shoulder followed by the posterior shoulder were delivered without difficulty. The infant was handed off to the patient's chest. The was found to be vigorous and crying and moving of all 4 extremities. The mouth and nares were bulb suctioned. After 60 second delay the cord was clamped and cut and the was handed off to the awaiting nurses for routine assessment and then PPV. The placenta was delivered with gentle traction and uterine massage. Inspection of the vagina cervix and perineum was performed. There were no lacerations to the vagina or to the cervix. The peritoneum was found to have a 1st degree perineal laceration. The perineal laceration was closed using a 3-0 Vicryl in the usual sterile fashion. The patient tolerated the procedure well sponge lap and needle counts were correct x2 and she is now recovering in stable condition. Presentation: Vertex Amniotic Membrane Rupture Type: Spontaneous Amniotic Fluid Description: Clear Placental Delivery Description: Spontaneous Placenta Disposition: [facility] Cord Vessel Description: 3 Vessels Cord Entanglement: Around neck x 1, tight Nuchal Cord Compression: Without compression A Gender: Male (1 minute): 5 (5 minute): 7 Delayed Cord Clamping: Yes Post Vaginal Delivery Medications Given After Delivery: IV Pitocin Episiotomy Description: None Laceration: 1st degree Complication Complications: None
[2021-09-13] MEDS: Ferrous Sulfate 325 MG Tablet PO (09:14)
[2021-09-13] MEDS: Sertraline 100 MG Tablet PO (09:14)
[2021-09-13] MEDS: Methylergonovine 0.2 MG/ML Ampul IM (11:04)
[2021-09-13] MEDS: Acetaminophen 500 MG Tablet 1000 MG PO (16:37)
--- NOTE | 2021-09-13 19:08 | NURSING ---
Called Dr. Lowry to update on Pt's temperature trends and HR for the day since delivery. Dr. Lowry orders Doxycycline 100mg BID, draw a CBC now and one in the AM
--- NOTE | 2021-09-13 19:12 | NURSING ---
Dr. Reagan calls back and changes antibiotic order to Unasyn 3G IV Q6hr for 24hours due to patient .
--- NOTE | 2021-09-13 19:19 | NURSING ---
Called Dr. Reagan to notify of patient's allergy to amoxicillin. New orders received for Gentamicin and Clindamycin.
[2021-09-13 20:16] LABS: Absolute Lymphocyte Count 1.77 X10^3/uL (0.83-4.51); Absolute Neutrophil Count 15.5 X10^3/uL (2.0-7.7); Basophil# 0.05 X10^3/uL; Basophil% 0.3 % (0-1); Eosinophil# 0.07 X10^3/uL; Eosinophils% 0.4 % (0-5); Hematocrit 32.7 % (37-47); Lymphocyte # 1.77 X10^3/ul (0.83-4.51); Lymphocyte % 9.6 % (19-41); Mean Corp Hgb Conc 33.6 g/dL (32-36); Mean Corpuscular Hgb 30.1 pg (27.0-32.0); Mean Corpuscular Volume 89.6 fL (81-99); Mean Platelet Vol. 9.4 fl (6.2-12.0); Monocyte% 4.9 % (0-10); NRBC Flagged by Analyzer 0 % (0-5); Neutrophil # 15.52 X10^3/uL (2.7-7.7); Neutrophil % 83.8 % (47-70); Platelet Count 215 K/mm3 (150-450); RBC Distribution Width CV 13.2 % (11.6-14.6); RBC Distribution Width SD 43.4 fl (35.1-43.9); Red Blood Count 3.65 M/mm3 (4.2-5.4); White Blood Count 18.5 K/mm3 (4.4-11.0)
[2021-09-13] MEDS: Clindamycin 900 MG/50 ML BAG 75 MG IV (21:46)
[2021-09-13] MEDS: Ibuprofen 600 MG Tablet PO (21:47)
[2021-09-14 00:11] VITALS: BP 116/73; PULSE 98; RESP 17; TEMP 36.5; O2SAT 98
[2021-09-14 03:50] VITALS: BP 122/77; PULSE 92; RESP 16; TEMP 36.4; O2SAT 97
[2021-09-14 05:03] LABS: Absolute Lymphocyte Count 2.03 X10^3/uL (0.83-4.51); Basophil# 0.06 X10^3/uL; Basophil% 0.4 % (0-1); Eosinophil# 0.16 X10^3/uL; Hematocrit 30.3 % (37-47); Hemoglobin 10.2 g/dL (12.0-15.0); Lymphocyte # 2.03 X10^3/ul (0.83-4.51); Lymphocyte % 13.3 % (19-41); Mean Corp Hgb Conc 33.7 g/dL (32-36); Mean Corpuscular Hgb 30.4 pg (27.0-32.0); Mean Corpuscular Volume 90.2 fL (81-99); Mean Platelet Vol. 9.2 fl (6.2-12.0); Monocyte# 0.83 X10^3/uL; Monocyte% 5.4 % (0-10); NRBC Flagged by Analyzer 0 % (0-5); Neutrophil # 12.03 X10^3/uL (2.7-7.7); Platelet Count 186 K/mm3 (150-450); RBC Distribution Width CV 13.4 % (11.6-14.6); RBC Distribution Width SD 44.1 fl (35.1-43.9); Red Blood Count 3.36 M/mm3 (4.2-5.4); White Blood Count 15.2 K/mm3 (4.4-11.0)
[2021-09-14] MEDS: Clindamycin 900 MG/50 ML BAG 75 MG IV ×2 (05:53→13:37)
--- NOTE | 2021-09-14 08:31 | PN.OBGYN_ITS ---
Subjective Subjective Patient doing well without complaints. Tolerating PO. Ambulating and voiding without difficulty. Feeding well. Denies chest pain, shortness of breath, calf pain/swelling, fevers, chills, lightheadedness. Objective Data Objective Data Vital Signs: Vital Signs Temp Pulse Resp BP Pulse Ox O2 Del Method 97.6 F L 92 16 122/77 H 97 Room Air 09/14/21 03:50 09/14/21 03:50 09/14/21 03:50 09/14/21 03:50 09/14/21 03:50 09/14/21 03:50 Oxygen Delivery Method Room Air Weight: 171 lb 15.369 oz Body Mass Index (BMI) 31.4 Intake & Output: Intake and Output for Last 24 Hours 09/12/21 09/13/21 09/14/21 23:59 23:59 23:59 Intake Total 2428.47 / 2428.47 1307.59 / 1307.59 50 / 50 Output Total 600 / 600 300 / 300 Balance 1828.47 / 1828.47 1007.59 / 1007.59 50 / 50 Lab / Micro Data Result Diagrams: 09/14/21 04:55 Labs: Laboratory Results - last 24 hr 09/13/21 20:05: WBC 18.5 H, RBC 3.65 L, Hgb 11.0 L, Hct 32.7 L, MCV 89.6, MCH 30.1, MCHC 33.6, RDW Std Deviation 43.4, RDW Coeff of Samir 13.2, Plt Count 215, MPV 9.4, Immature Gran % (Auto) 1.000 H, Neut % (Auto) 83.8 H, Lymph % (Auto) 9.6 L, [place] % (Auto) 4.9, Eos % (Auto) 0.4, Baso % (Auto) 0.3, Absolute Neuts (auto) 15.5 H, Absolute Lymphs (auto) 1.77, Nucleated RBC % 0 09/14/21 04:55: WBC 15.2 H, RBC 3.36 L, Hgb 10.2 L, Hct 30.3 L, MCV 90.2, MCH 30.4, MCHC 33.7, RDW Std Deviation 44.1 H, RDW Coeff of Samir 13.4, Plt Count 186, MPV 9.2, Immature Gran % (Auto) 0.900, Neut % (Auto) 79.0 H, Lymph % (Auto) 13.3 L, [place] % (Auto) 5.4, Eos % (Auto) 1.0, Baso % (Auto) 0.4, Absolute Neuts (auto) 12.0 H, Absolute Lymphs (auto) 2.03, Nucleated RBC % 0 Micro: Microbiology 09/12/21 10:00 Nasal Secretion SARS-CoV-2 Antigen (Rapid) - Final ROS Constitutional Constitutional: Denies chills, fatigue, fever(s), poor appetite or weakness Eyes Eyes: Denies blurry vision, change in vision, seeing flashes or spots in vision ENT HEENT: Denies dizziness, headache(s), loss taste/smell or sore throat Cardiovascular Cardiovascular: Denies chest pain, dizziness, dyspnea, irregular heart rhythm, palpitations or rapid heart rate Respiratory/Chest Respiratory/Chest: Denies chest tightness, cough, dyspnea or breast pain Gastrointestinal Gastrointestinal: Denies abdominal pain, constipation or vomiting Genitourinary Genitourinary: Denies dysuria or flank pain Musculoskeletal Musculoskeletal: Denies difficulty walking, joint pain, limited range of motion or numbness Neurologic Neurologic: Denies abnormal movements, abnormal speech, dizziness, numbness, seizure-like activity or syncope Psychiatric Psychiatric: Denies anxiety, behavioral changes, change in appetite, confusion, depression or suicidal thoughts Physical Exam Const alert, oriented x3 and no apparent distress General Appearance: cooperative and comfortable Resp normal respiratory effort Cardio regular rate GI normal to inspection, nondistended, normoactive bowel sounds GI Narrative: uterus is firm below umbilicus Palpation: soft Back/Spine no CVA tenderness and thoraco-lumbar ROM normal Extremity normal to inspection, no clubbing, cyanosis or edema, no calf tenderness and no pedal edema Psych mental status grossly normal, thought process normal, cooperative, affect normal, speech normal, activity/motor behavior normal, denies homicidal ideation and denies suicidal ideation Assessment & Plan (1) Status post vacuum-assisted vaginal delivery: PLAN: Plan s/p PPD # 1 - vacuum extraction for maternal exhaustion, prolonged membrane rupture. possible endometritis after delivery based on fever and tachycardia. pt has received gentamicin and clinda x 2 - continue Clinda for total of 24 hrs and if well tonight may be dc'd to home. 1. routine post delivery care 2. breast feeding- support given 3. rh positive 4. rubella immune
[2021-09-14 08:51] VITALS: BP 115/82; PULSE 96; RESP 18; TEMP 36.8; O2SAT 98
[2021-09-14] MEDS: Ibuprofen 600 MG Tablet PO ×2 (09:01→15:53)
[2021-09-14] MEDS: Sertraline 100 MG Tablet PO (11:32)
[2021-09-14] MEDS: Senna/Docusate Sodium 1 Tablet PO (12:38)
[2021-09-14] MEDS: Ferrous Sulfate 325 MG Tablet PO (12:38)
[2021-09-14] MEDS: 0.9% Saline Lock 10 ML Syringe IV ×2 (13:35→14:34)
[2021-09-14 13:51] VITALS: BP 112/72; PULSE 91; RESP 16; TEMP 36.7; O2SAT 98
[2021-09-14 18:36] VITALS: BP 109/76; PULSE 89; RESP 16; TEMP 36.5; O2SAT 98
== END 2021-09-14 20:10 | disposition home or self-care (01) | DRG 807 ==
LOC: WPOUT 09:04 → WP 09:04
PROVIDERS: Admitting Provider Obstetrics & Gynecology; PCP Nurse Practitioner Family; Referring Provider Obstetrics & Gynecology; Visit Provider Obstetrics & Gynecology
DX: O75.81 Maternal exhaustion complicating labor and delivery (principal); Z37.0 Single live birth; O99.344 Other mental disorders complicating childbirth; F41.9 Anxiety disorder, unspecified; O70.0 First degree perineal laceration during delivery; O69.2XX0 Labor and delivery complicated by other cord entanglement, with compression, not applicable or unspecified; Z3A.37 37 weeks gestation of pregnancy; Z14.8 Genetic carrier of other disease; O86.12 Endometritis following delivery; Z87.59 Personal history of other complications of pregnancy, childbirth and the puerperium
CPT/HCPCS: 59025; 59050; 84112; 85025; 86850; 86900; 86901; 87426; 99218; J7120; A4216; G0378; J2405

== ENCOUNTER → 2021-12-06 | Outpatient (CLI) | payer OTHER, SELFPAY ==
--- NOTE | 2021-12-06 14:01 | US_ITS ---
STUDY: ULTRASOUND BREAST - RIGHT REASON FOR EXAM: Female, 31 years old. Right breast lump. Patient is nursing. TECHNIQUE: Axial and longitudinal images of the RIGHT breast were performed with a high resolution ultrasound transducer. # OF IMAGES: 41 COMPARISON: None. FINDINGS: RIGHT Breast: The right axilla and right upper quadrant of the breast were examined by ultrasound. There is a 7 mm x 5 mm x 5 mm benign appearing lymph node at the 11 o''clock position of the breast at 6 cm from nipple. US/Breast Limited Unilateral IMPRESSION: The palpable lump corresponds to a benign appearing lymph node. ASSESSMENT CATEGORY: BIRADS Category 2: Benign. A letter regarding these results will be sent to the patient by the facility within 30 days. Electronically Signed: Tray Lomeli MD at 14:53 EDT ,
== END | disposition home or self-care (01) ==
LOC: OPBI 13:59
PROVIDERS: PCP Nurse Practitioner Family; Visit Provider Obstetrics & Gynecology
DX: N63.10 Unspecified lump in the right breast, unspecified quadrant (principal)
CPT/HCPCS: 76642

== ENCOUNTER → 2023-02-22 | Outpatient (CLI) | payer OTHER, SELFPAY ==
[2023-02-22 09:43] LABS: Progesterone Level 4.79 ng/mL (See Comment)
--- OUTSIDE RECORDS SUMMARY | 2023-02-22 09:47 | XMS RPT_ITS | CCD ---
Author Name Unknown Address [address] [facility] [address] [place] [address] Organization [facility] Care Team Providers Care Intermediate Designer Name Role Phone PETER TODD Attending Unavailable PETER TODD Primary Care Unavailable PETER TODD Admitting Unavailable SELF Referring Unavailable MATILDE JUAN Primary Care Unavailable NHAN AVENDANO Attending Unavailable Matilde Juan CNP Primary Care Provider Allergies Allergy Classification Reported Allergen(s) Allergy Type Date of Onset Reaction(s) Facility (2 sources) Amoxicillin; Translations: [AMOXICILLIN] Drug Allergy 09-28-2010 [facility] Repository Medications Current Medications Medication Drug Class(es) Dates Sig (Normalized) Sig (Original) hydrocortisone 10 mg/ml / neomycin 3.5 mg/ml / polymyxin b 12748 unt/ml otic suspension (1 source) Aminoglycoside Antibacterial, Polymyxin-class Antibacterial, Corticosteroid Start: 08-26-2022 End: 09-02-2022 neomycin-polymyx in-hydrocortison e (CORTISPORIN) 3.5-10,000-1 mg/mL-unit/mL-% otic suspension Indications: Acute diffuse otitis externa of left ear Use 4 Drops in the ears four times daily for 7 days. Instill 4 drops to affected ear 3-4 times daily 10 mL 0 08/26/2022 09/02/2022 Active Completed/Discontinued Medications Medication Drug Class(es) Dates Sig (Normalized) Sig (Original) Ethinyl Estradiol / Levonorgestrel (1 source) Progestin, Estrogen, Progestin-containin g Intrauterine Device Start: 06-12-2012 take 1 tablet by mouth once daily Levonorgestrel-E thinyl Estrad (AVIANE) 0.1mg - 20mcg per tablet Take 1 tablet by mouth once daily. 1 Package 13 06/12/2012 Active Problems Problem Classification Problem Date Documented Da te Episodic/Chronic Other ear and sense organ disorders (1 source) Diffuse otitis externa, left ear; Translations: [Acute diffuse otitis externa of left ear] Onset: 08-26-2022 Episodic Other ear and sense organ disorders (1 source) Acute otitis externa; Translations: [Diffuse otitis externa, left ear] Episodic Other endocrine disorders (1 source) Polycystic ovary syndrome; Translations: [Polycystic ovarian syndrome] Onset: 12-05-2010 12-05-2010 Chronic Other female genital disorders (1 source) Abnormal vaginal bleeding; Translations: [Abnormal uterine and vaginal bleeding, unspecified] Onset: 12-05-2010 12-05-2010 Chronic Results Test Name Value Interpretation Reference Range Facil ity Vital Signs Date Time Vital Sign Value Performing Clinician Faci lity 08-26-2022 09:42-0400 Body temperature 97 [degF] Nhan Avendano MD Work Phone: [facility] 08-26-2022 09:42-0400 Body weight 69.4 kg Nhan Avendano MD Work Phone: [facility] 08-26-2022 09:42-0400 Diastolic blood pressure 74 mm[Hg] Nhan Avendano MD Work Phone: [facility] 08-26-2022 09:42-0400 Heart rate 90 /min Nhan Avendano MD Work Phone: [facility] 08-26-2022 09:42-0400 Respiratory rate 18 /min Nhan Avendano MD Work Phone: [facility] 08-26-2022 09:42-0400 SaO2% (BldA) [Mass fraction] 97 % Nhan Avendano MD Work Phone: [facility] 08-26-2022 09:42-0400 Systolic blood pressure 116 mm[Hg] Nhan Avendano MD Work Phone: [facility] Encounters Encounter Date Encounter Type Care Provider Facility Start: 08-26-2022 End: 08-26-2022 ambulatory SELF Facility:[id number] Start: 08-26-2022 End: 08-26-2022 Office outpatient new 30 minutes Nhan Avendano MD Work Phone: [facility] Plan of Treatment Date Care Activity Detail Author Start: 10-26-2022 Influenza vaccination INFLUENZA (#1) [facility] Start: 02-25-2022 DEPRESSION ASSESSMENT DEPRESSION ASS ESSMENT [facility] Start: 2020 HPV TESTING HPV TESTING [facility] Start: 07-26-2011 PAP TESTING PAP TESTING [facility] Start: 2009 Urine microalbumin profile DTAP,TDAP ,TD (1 - Tdap) [facility] Start: 2008 HEPATITIS C SCREENING HEPATITIS C SC REENING [facility] Start: 2008 HIV SCREENING HIV SCREENING [facility] Start: 01-24-1991 COVID-19 VACCINE (#1) COVID-19 VACCI NE (#1) [facility] Start: 1990 HEPATITIS B (1 of 3 - 3-dose series) HEPATITIS B (1 of 3 - 3-dose series) [facility] Payers Date Payer Category Payer Unknown [id number] 2022 Unknown [employer] PPO [id number] 2022-[address] [place] [address] PPO [id number] 1990 Unknown [id number] Social History Date Type Detail Facility Start: 09-28-2010 Tobacco smoking stat us NHIS Never smoked tobacco [facility] Work Phone: Start: 09-28-2010 Tobacco use and exposure Smokeless tobacco non-user [facility] Work Phone: Start: 08-26-2022 Alcohol intake Current non-dr [employer] hand of alcohol (finding) [facility] Start: 1990 Sex Assigned At Not on file [facility] Progress note 08-26-2022 Note Date & Type Note Facility 08-26-2022 Note HNO ID: [id number] Author: Nhan Avendano MD Service: ? Author Type: Physician Type: Progress Notes Filed: 08/26/2022 10:01 AM Note Text: Amparo Espino is a 32 year old FEMALE who presents with Ear Problem (Left ear pain/X 3 days) 32 years old female presented with left ear pain for the last 3 days Denies cough congestion or any sinus symptoms Initially patient thought it was earwax so she used Debrox But it did not help Upon detailed questioning she used Q-tips to clean her ear on daily basis Hearing is unchanged. No sore throat PAST MEDICAL HISTORY Diagnosis Date Menorrhagia PCOS (polycystic ovarian syndrome) ACTIVE PROBLEM LIST Abnormal Vaginal Bleeding Pcos (Polycystic Ovarian Syndrome) Current Outpatient Medications Medication Sig Dispense Refill sertraline (ZOLOFT) 100 mg tablet Take 100 mg by mouth once daily. Levonorgestrel-Ethinyl Estrad (AVIANE) 0.1mg - 20mcg per tablet Take 1 tablet by mouth once daily. (Patient not taking: Reported on 08/26/2022) 1 Package 13 medroxyPROGESTERone (PROVERA) 10 mg tablet Take 1 tablet by mouth once daily. (Patient not taking: Reported on 08/26/2022) 10 tablet 6 spironolactone (ALDACTONE) 50 mg tablet Take 1 tablet by mouth once daily. (Patient not taking: Reported on 08/26/2022) 30 tablet 12 No current facility-administered medications for this visit. Social History Tobacco Use Smoking status: Never Smokeless tobacco: Never Substance Use Topics Alcohol use: No Drug use: No Alcohol Use: No Tobacco Use: Never FAMILY HISTORY Problem Relation Age of Onset Cancer Father thyroid Kidney Disease Father Review of Systems HENT: Positive for ear pain. All other systems reviewed and are negative. BP 116/74 Pulse 90 Temp 97 Resp 18 Wt 153 lb (69.4kg) SpO2 97% LMP 07/14/2022 Physical Exam Vitals reviewed. Constitutional: General: She is not in acute distress. Appearance: Normal appearance. She is not ill-appearing or toxic-appearing. HENT: Right Ear: Tympanic membrane, ear canal and external ear normal. Left Ear: Tympanic membrane and external ear normal. Ears: Comments: Ear canal of left ear is is swollen and inflamed Tenderness at the external meatus and motion of the left earlobe is painful There is no wax in the ears on both side Nose: Nose normal. Mouth/Throat: Mouth: Mucous membranes are moist. Pharynx: Oropharynx is clear. Cardiovascular: Rate and Rhythm: Normal rate and regular rhythm. Heart sounds: Normal heart sounds. Pulmonary: Effort: Pulmonary effort is normal. Breath sounds: Normal breath sounds. Musculoskeletal: Cervical back: Normal range of motion and neck supple. No rigidity. Lymphadenopathy: Cervical: No cervical adenopathy. Neurological: Mental Status: She is alert. ASSESSMENT/PLAN: 1. Acute diffuse otitis externa of left ear - ICD9: 380.10, ICD10: H60.312 - [id number] 3.5 MG-10,000 UNIT/ML-1 % EAR DROPS,SUSP No Q tip and water to ears Recheck if any change F/U PCP for further care Explained details Nhan Avendano MD [facility] Instructions 08-26-2022 Patient Instructions Note Date & Type Note Facility 08-26-2022 Instructions Nhan Avendano MD - 08/26/2022 10:00 AM EDT No Q tip and water to ears Recheck if any change F/U PCP for further care Explained details documented in this encounter [facility] History of Present illness Narrative 08-26-2022 Nhan Avendano MD - 08/26/2022 9:54 AM EDT Note Date & Type Note Facility 08-26-2022 History of Presen t illness Narrative Amparo Espino is a 32 year old FEMALE who presents with Ear Problem (Left ear pain/X 3 days) 32 years old female presented with left ear pain for the last 3 days Denies cough congestion or any sinus symptoms Initially patient thought it was earwax so she used Debrox But it did not help Upon detailed questioning she used Q-tips to clean her ear on daily basis Hearing is unchanged. No sore throat PAST MEDICAL HISTORY Diagnosis Date Menorrhagia PCOS (polycystic ovarian syndrome) ACTIVE PROBLEM LIST Abnormal Vaginal Bleeding Pcos (Polycystic Ovarian Syndrome) Current Outpatient Medications Medication Sig Dispense Refill sertraline (ZOLOFT) 100 mg tablet Take 100 mg by mouth once daily. Levonorgestrel-Ethinyl Estrad (AVIANE) 0.1mg - 20mcg per tablet Take 1 tablet by mouth once daily. (Patient not taking: Reported on 08/26/2022) 1 Package 13 medroxyPROGESTERone (PROVERA) 10 mg tablet Take 1 tablet by mouth once daily. (Patient not taking: Reported on 08/26/2022) 10 tablet 6 spironolactone (ALDACTONE) 50 mg tablet Take 1 tablet by mouth once daily. (Patient not taking: Reported on 08/26/2022) 30 tablet 12 No current facility-administered medications for this visit. Social History Tobacco Use Smoking status: Never Smokeless tobacco: Never Substance Use Topics Alcohol use: No Drug use: No Alcohol Use: No Tobacco Use: Never FAMILY HISTORY Problem Relation Age of Onset Cancer Father thyroid Kidney Disease Father Review of Systems HENT: Positive for ear pain. All other systems reviewed and are negative. BP 116/74 Pulse 90 Temp 97 Resp 18 Wt 153 lb (69.4kg) SpO2 97% LMP 07/14/2022 Physical Exam Vitals reviewed. Constitutional: General: She is not in acute distress. Appearance: Normal appearance. She is not ill-appearing or toxic-appearing. HENT: Right Ear: Tympanic membrane, ear canal and external ear normal. Left Ear: Tympanic membrane and external ear normal. Ears: Comments: Ear canal of left ear is is swollen and inflamed Tenderness at the external meatus and motion of the left earlobe is painful There is no wax in the ears on both side Nose: Nose normal. Mouth/Throat: Mouth: Mucous membranes are moist. Pharynx: Oropharynx is clear. Cardiovascular: Rate and Rhythm: Normal rate and regular rhythm. Heart sounds: Normal heart sounds. Pulmonary: Effort: Pulmonary effort is normal. Breath sounds: Normal breath sounds. Musculoskeletal: Cervical back: Normal range of motion and neck supple. No rigidity. Lymphadenopathy: Cervical: No cervical adenopathy. Neurological: Mental Status: She is alert. ASSESSMENT/PLAN: 1. Acute diffuse otitis externa of left ear - ICD9: 380.10, ICD10: H60.312 - [id number] 3.5 MG-10,000 UNIT/ML-1 % EAR DROPS,SUSP No Q tip and water to ears Recheck if any change F/U PCP for further care Explained details Nhan Avendano MD documented in this encounter [facility] Evaluation note Note Date & Type Note Facility documented in this encounter [facility] Summary Purpose Family History No Family History Records FoundNo Family History Records FoundNo Family History Records FoundNo Family History Records Found Advance Directives No Advanced Directives Records FoundNo Advanced Directives Records FoundNo Advanced Directives Records FoundNo Advanced Directives Records Found Additional Source Comments INFORMATION SOURCE (unrecogn ized section and content) DATE CREATED AUTHOR AUTHOR'S ORGANIZ ATION 04/24/2020 [facility] ([place]) DATE CREATED AUTHOR AUTHOR'S ORGANIZ ATION 09/20/2020 [facility] DATE CREATED AUTHOR AUTHOR'S ORGANIZ ATION 08/26/2022 [facility] nter Source Comments (unrecognize d section and content) In the event this informatio n is protected by the Federal Confidentiality of Alcohol and Drug Abuse Patient Records regulations: The Federal rules restrict any use of the information to criminally investigate or prosecute any alcohol or drug abuse patient.[facility] Reason for Visit (unrecogniz ed section and content) Care Teams (unrecognized sec tion and content) FOR RECORDS PERTAINING TO PATIENTS WHO ARE OR HAVE BEEN ENROLLED IN A CHEMICAL DEPENDENCY/SUBSTANCEABUSE PROGRAM, SOME INFORMATION MAY BE OMITTED. This clinical summary was aggregated from multiple sources. Caution should be exercised in using it in the provision of clinical care. This summary normalizes information from multiple sources, and as a consequence, information in this document may materially change the coding, format and clinical context of patient data. In addition, data may be omitted in some cases. CLINICAL DECISIONS SHOULD BE BASED ON THE PRIMARY CLINICAL RECORDS. [employer] provides no warranty or guarantee of the accuracy or completeness of information in this document.
== END | disposition home or self-care (01) ==
LOC: PAVLAB 09:07
PROVIDERS: PCP Nurse Practitioner Family; Referring Provider Registered Nurse; Visit Provider Registered Nurse
DX: N97.0 Female infertility associated with anovulation (principal)
CPT/HCPCS: 36415; 84144

== ENCOUNTER → 2023-03-17 | Outpatient (CLI) | payer OTHER, SELFPAY ==
--- OUTSIDE RECORDS SUMMARY | 2023-03-17 09:00 | XMS RPT_ITS | CCD ---
Author Name Unknown Address [address] [facility] [address] [place] [address] Organization [facility] Care Team Providers Care Wet Trimmer Name Role Phone PETER TODD Attending Unavailable PETER TODD Primary Care Unavailable PETER TODD Admitting Unavailable SELF Referring Unavailable MATILDE JUAN Primary Care Unavailable NHAN AVENDANO Attending Unavailable Matilde Juan CNP Primary Care Provider Allergies Allergy Classification Reported Allergen(s) Allergy Type Date of Onset Reaction(s) Facility (2 sources) Amoxicillin; Translations: [AMOXICILLIN] Drug Allergy 09-28-2010 [facility] Repository Medications Current Medications Medication Drug Class(es) Dates Sig (Normalized) Sig (Original) hydrocortisone 10 mg/ml / neomycin 3.5 mg/ml / polymyxin b 76454 unt/ml otic suspension (1 source) Aminoglycoside Antibacterial, [...] 97 [degF] Nhan Avendano MD Work Phone: [facility] 08-26-2022 09:42-0400 Body weight 69.4 kg Nhan Avendano MD Work Phone: [facility] 08-26-2022 09:42-0400 Diastolic blood pressure 74 mm[Hg] Nhan Avendano MD Work Phone: [facility] 08-26-2022 09:42-0400 Heart rate 90 /min Nahn Avendano MD Work Phone: [facility] 08-26-2022 09:42-0400 Respiratory rate 18 /min Nhan Avendano MD Work Phone: [facility] 08-26-2022 09:42-0400 SaO2% (BldA) [Mass fraction] 97 % Nhan Avendano MD Work Phone: [facility] 08-26-2022 09:42-0400 Systolic blood pressure 116 mm[Hg] Nhan Avendano MD Work Phone: [facility] Encounters Encounter Date Encounter Type Care Provider Facility Start: 08-26-2022 End: 08-26-2022 ambulatory SELF Facility:[id number] Start: 08-26-2022 End: 08-26-2022 Office outpatient new 30 minutes Nhan Avendano MD Work Phone: [facility] Plan of Treatment Date Care Activity Detail Author Start: 10-26-2022 Influenza vaccination INFLUENZA (#1) [facility] Start: 02-25-2022 DEPRESSION ASSESSMENT DEPRESSION ASS ESSMENT [facility] Start: 2020 HPV TESTING HPV TESTING [facility] Start: 07-26-2011 PAP TESTING PAP TESTING [facility] Start: 2009 Urine microalbumin profile DTAP,TDAP ,TD (1 - Tdap) [facility] Start: 2008 HEPATITIS C SCREENING HEPATITIS C SC REENING [facility] Start: 2008 HIV SCREENING HIV SCREENING [facility] Start: 01-24-1991 COVID-19 VACCINE (#1) COVID-19 VACCI NE (#1) [facility] Start: 1990 HEPATITIS B (1 of 3 - 3-dose series) HEPATITIS B (1 of 3 - 3-dose series) [facility] Payers Date Payer Category Payer Unknown [id number] 2022 Unknown [employer] PPO [id number] 2022-[address] [place] [address] PPO [id number] 1990 Unknown [id number] Social History Date Type Detail Facility Start: 09-28-2010 Tobacco smoking stat us NHIS Never smoked tobacco [facility] Work Phone: Start: 09-28-2010 Tobacco use and exposure Smokeless tobacco non-user [facility] Work Phone: Start: 08-26-2022 Alcohol intake Current non-dr canvas shrinker of alcohol (finding) [facility] Start: 1990 Sex Assigned At Not on file [facility] Progress note 08-26-2022 Note Date & Type Note Facility 08-26-2022 Note HNO ID: [id number] Author: Nhan Avendano MD Service: ? Author [...] ear - ICD9: 380.10, ICD10: H60.312 - [id number] 3.5 MG-10,000 UNIT/ML-1 % EAR DROPS,SUSP No Q tip and water to ears Recheck if any change F/U PCP for further care Explained details Nhan Avendano MD [facility] Instructions 08-26-2022 Patient Instructions Note Date & Type Note Facility 08-26-2022 Instructions Nhan Avendano MD - 08/26/2022 10:00 AM EDT No Q tip and water to ears Recheck if any change F/U PCP for further care Explained details documented in this encounter [facility] History of Present illness Narrative 08-26-2022 Nhan [...] ear - ICD9: 380.10, ICD10: H60.312 - [id number] 3.5 MG-10,000 UNIT/ML-1 % EAR DROPS,SUSP No Q tip and water to ears Recheck if any change F/U PCP for further care Explained details Nhan Avendano MD documented in this encounter [facility] Evaluation note Note Date & Type Note Facility documented in this encounter [facility] Summary Purpose Family History No Family History Records FoundNo Family History Records FoundNo Family History Records FoundNo Family History Records Found Advance Directives No Advanced Directives Records FoundNo Advanced Directives Records FoundNo Advanced Directives Records FoundNo Advanced Directives Records Found Additional Source Comments INFORMATION SOURCE (unrecogn ized section and content) DATE CREATED AUTHOR AUTHOR'S ORGANIZ ATION 04/24/2020 [facility] ([place]) DATE CREATED AUTHOR AUTHOR'S ORGANIZ ATION 09/20/2020 [facility] DATE CREATED AUTHOR AUTHOR'S ORGANIZ ATION 08/26/2022 [facility] nter Source Comments (unrecognize d section and content) In the event this informatio n is protected by the Federal Confidentiality of Alcohol and Drug Abuse Patient Records regulations: The Federal rules restrict any use of the information to criminally investigate or prosecute any alcohol or drug abuse patient.[facility] Reason for Visit (unrecogniz ed section and [...] BE BASED ON THE PRIMARY CLINICAL RECORDS. [employer] provides no warranty or guarantee of the accuracy or completeness of information in this document.
[2023-03-18 09:55] LABS: Progesterone Level 0.37 ng/mL (See Comment)
== END | disposition home or self-care (01) ==
PROVIDERS: PCP Nurse Practitioner Family; Referring Provider Registered Nurse; Visit Provider Registered Nurse
DX: N97.0 Female infertility associated with anovulation (principal)
CPT/HCPCS: 36415; 84144

== ENCOUNTER → 2023-05-10 | Outpatient (CLI) | payer OTHER, SELFPAY ==
--- OUTSIDE RECORDS SUMMARY | 2023-05-10 08:25 | XMS RPT_ITS | CCD ---
Author Name Unknown Address [address] [facility] [address] [place] [address] Organization [facility] Care Team Providers Care Medical Records Receptionist Name Role Phone PETER TODD Attending Unavailable PETER TODD Primary Care Unavailable PETER TODD Admitting Unavailable SELF Referring Unavailable MATILDE JUAN Primary Care Unavailable NHAN AVENDANO Attending Unavailable Matilde Juan CNP Primary Care Provider Allergies Allergy Classification Reported Allergen(s) Allergy Type Date of Onset Reaction(s) Facility (2 sources) Amoxicillin; Translations: [AMOXICILLIN] Drug Allergy 09-28-2010 [facility] Repository Medications Current Medications Medication Drug Class(es) Dates Sig (Normalized) Sig (Original) hydrocortisone 10 mg/ml / neomycin 3.5 mg/ml / polymyxin b 61382 unt/ml otic suspension (1 source) Aminoglycoside Antibacterial, [...] 97 [degF] Nhan Avendano MD Work Phone: [facility] 08-26-2022 09:42-0400 Body weight 69.4 kg Nhan Avendano MD Work Phone: [facility] 08-26-2022 09:42-0400 Diastolic blood pressure 74 mm[Hg] Nhan Avendano MD Work Phone: [facility] 08-26-2022 09:42-0400 Heart rate 90 /min Nhan Avendano MD Work Phone: [facility] 08-26-2022 09:42-0400 Respiratory rate 18 /min Nhan Avendano MD Work Phone: [facility] 08-26-2022 09:42-0400 SaO2% (BldA) [Mass fraction] 97 % Nhan Avendano MD Work Phone: [facility] 08-26-2022 09:42-0400 Systolic blood pressure 116 mm[Hg] Nhan Avendano MD Work Phone: [facility] Encounters Encounter Date Encounter Type Care Provider Facility Start: 08-26-2022 End: 08-26-2022 ambulatory SELF Facility:[id number] Start: 08-26-2022 End: 08-26-2022 Office outpatient new 30 minutes Nhan Avendano MD Work Phone: [facility] Plan of Treatment Date Care Activity Detail Author Start: 10-26-2022 Influenza vaccination INFLUENZA (#1) [facility] Start: 02-25-2022 DEPRESSION ASSESSMENT DEPRESSION ASS ESSMENT [facility] Start: 2020 HPV TESTING HPV TESTING [facility] Start: 07-26-2011 PAP TESTING PAP TESTING [facility] Start: 2009 Urine microalbumin profile DTAP,TDAP ,TD (1 - Tdap) [facility] Start: 2008 HEPATITIS C SCREENING HEPATITIS C SC REENING [facility] Start: 2008 HIV SCREENING HIV SCREENING [facility] Start: 01-24-1991 COVID-19 VACCINE (#1) COVID-19 VACCI NE (#1) [facility] Start: 1990 HEPATITIS B (1 of 3 - 3-dose series) HEPATITIS B (1 of 3 - 3-dose series) [facility] Payers Date Payer Category Payer Unknown [id number] 2022 Unknown [employer] PPO [id number] 2022-20[address] [place] [address] PPO [id number] 1990 Unknown [id number] Social History Date Type Detail Facility Start: 09-28-2010 Tobacco smoking stat us NHIS Never smoked tobacco [facility] Work Phone: Start: 09-28-2010 Tobacco use and exposure Smokeless tobacco non-user [facility] Work Phone: Start: 08-26-2022 Alcohol intake Current non-dr auriculotherapist of alcohol (finding) [facility] Start: 1990 Sex Assigned At Not on file [facility] Progress note 08-26-2022 Note Date & Type Note Facility 08-26-2022 Note HNO ID: [id number] Author: Nhan Avendano MD Service: ? Author [...] ear - ICD9: 380.10, ICD10: H60.312 - [id number] 3.5 MG-10,000 UNIT/ML-1 % EAR DROPS,SUSP No Q tip and water to ears Recheck if any change F/U PCP for further care Explained details Nhan Avendano MD [facility] Instructions 08-26-2022 Patient Instructions Note Date & Type Note Facility 08-26-2022 Instructions Nhan Avendano MD - 08/26/2022 10:00 AM EDT No Q tip and water to ears Recheck if any change F/U PCP for further care Explained details documented in this encounter [facility] History of Present illness Narrative 08-26-2022 Nhan [...] ear - ICD9: 380.10, ICD10: H60.312 - [id number] 3.5 MG-10,000 UNIT/ML-1 % EAR DROPS,SUSP No Q tip and water to ears Recheck if any change F/U PCP for further care Explained details Nhan Avendano MD documented in this encounter [facility] Evaluation note Note Date & Type Note Facility documented in this encounter [facility] Summary Purpose Family History No Family History Records FoundNo Family History Records FoundNo Family History Records FoundNo Family History Records Found Advance Directives No Advanced Directives Records FoundNo Advanced Directives Records FoundNo Advanced Directives Records FoundNo Advanced Directives Records Found Additional Source Comments INFORMATION SOURCE (unrecogn ized section and content) DATE CREATED AUTHOR AUTHOR'S ORGANIZ ATION 04/24/2020 [facility] ([place]) DATE CREATED AUTHOR AUTHOR'S ORGANIZ ATION 09/20/2020 [facility] DATE CREATED AUTHOR AUTHOR'S ORGANIZ ATION 08/26/2022 [facility] nter Source Comments (unrecognize d section and content) In the event this informatio n is protected by the Federal Confidentiality of Alcohol and Drug Abuse Patient Records regulations: The Federal rules restrict any use of the information to criminally investigate or prosecute any alcohol or drug abuse patient.[facility] Reason for Visit (unrecogniz ed section and [...] BE BASED ON THE PRIMARY CLINICAL RECORDS. [employer] provides no warranty or guarantee of the accuracy or completeness of information in this document.
[2023-05-10 09:22] LABS: Progesterone Level 14.34 ng/mL (See Comment)
== END | disposition home or self-care (01) ==
LOC: PAVLAB 08:08
PROVIDERS: PCP Nurse Practitioner Family; Referring Provider Registered Nurse; Visit Provider Registered Nurse
DX: N97.0 Female infertility associated with anovulation (principal)
CPT/HCPCS: 36415; 84144

== ENCOUNTER → 2023-09-30 | Outpatient (CLI) | payer OTHER, SELFPAY ==
[2023-09-30 10:40] LABS: Absolute Lymphocyte Count 1.96 X10^3/uL (0.83-4.51); Absolute Neutrophil Count 5.3 X10^3/uL (2.0-7.7); Basophil# 0.07 X10^3/uL; Basophil% 0.9 % (0-1); Eosinophils% 3.7 % (0-5); Hematocrit 37.2 % (37-47); Hemoglobin 12.7 g/dL (12.0-15.0); Lymphocyte # 1.96 X10^3/ul (0.83-4.51); Lymphocyte % 24.3 % (19-41); Mean Corp Hgb Conc 34.1 g/dL (32-36); Mean Corpuscular Hgb 28.3 pg (27.0-32.0); Mean Platelet Vol. 8.9 fl (6.2-12.0); Monocyte# 0.43 X10^3/uL; Monocyte% 5.3 % (0-10); NRBC Flagged by Analyzer 0 % (0-5); Neutrophil # 5.29 X10^3/uL (2.7-7.7); Neutrophil % 65.6 % (47-70); Platelet Count 334 K/mm3 (150-450); RBC Distribution Width CV 12.3 % (11.6-14.6); RBC Distribution Width SD 37.2 fl (35.1-43.9); Red Blood Count 4.48 M/mm3 (4.2-5.4); White Blood Count 8.1 K/mm3 (4.4-11.0)
[2023-09-30 11:39] LABS: HIV - WCH Non-Reactive (Nonreactive); Hepatitis B Surface Antigen Non-Reactive (Nonreactive); Hepatitis C Antibody Non-Reactive (Nonreactive); Rubella IgG Reactive (Nonreactive); Syphilis Antibodies Non-reactive
[2023-10-03 06:09] LABS: Chlamydia By Nucleic Acid AMP Negative (Negative); Gonococcus By Nucleic Acid AMP Negative (Negative)
[2023-10-05 10:42] LABS: HPV APTIMA, High Risk Negative (Negative)
== END | disposition home or self-care (01) ==
LOC: LAB 10:03
PROVIDERS: PCP Nurse Practitioner Family; Referring Provider Obstetrics & Gynecology; Visit Provider Obstetrics & Gynecology
DX: O09.90 Supervision of high risk pregnancy, unspecified, unspecified trimester (principal); Z3A.00 Weeks of gestation of pregnancy not specified
CPT/HCPCS: 36415; 85025; 86703; 86762; 86780; 86803; 86850; 86900; 86901; 87086; 87088; 87340; 87491; 87591; 87624; 88175; G0145

== ENCOUNTER → 2024-01-31 | Outpatient (CLI) | payer OTHER, SELFPAY ==
[2024-01-31 13:59] LABS: Absolute Lymphocyte Count 1.84 X10^3/uL (0.83-4.51); Absolute Neutrophil Count 9.3 X10^3/uL (2.0-7.7); Basophil# 0.05 X10^3/uL; Basophil% 0.4 % (0-1); Eosinophil# 0.23 X10^3/uL; Eosinophils% 1.9 % (0-5); Hematocrit 36.6 % (37-47); Hemoglobin 12.3 g/dL (12.0-15.0); Lymphocyte # 1.84 X10^3/ul (0.83-4.51); Lymphocyte % 15.4 % (19-41); Mean Corp Hgb Conc 33.6 g/dL (32-36); Mean Corpuscular Hgb 28.9 pg (27.0-32.0); Mean Corpuscular Volume 85.9 fL (81-99); Monocyte% 4.2 % (0-10); NRBC Flagged by Analyzer 0 % (0-5); Neutrophil # 9.25 X10^3/uL (2.7-7.7); Neutrophil % 77.7 % (47-70); Platelet Count 299 K/mm3 (150-450); RBC Distribution Width CV 12.8 % (11.6-14.6); Red Blood Count 4.26 M/mm3 (4.2-5.4); White Blood Count 11.9 K/mm3 (4.4-11.0)
[2024-01-31 14:11] LABS: Glucose Challenge Gest 1H 50g 138 mg/dL (70-140)
[2024-01-31 14:51] LABS: HIV - WCH Non-Reactive (Nonreactive); Syphilis Antibodies Non-reactive
== END | disposition home or self-care (01) ==
LOC: BWCLAB 13:11
PROVIDERS: PCP Nurse Practitioner Family; Referring Provider Advanced Practice Midwife; Visit Provider Advanced Practice Midwife
DX: O09.90 Supervision of high risk pregnancy, unspecified, unspecified trimester (principal); Z3A.00 Weeks of gestation of pregnancy not specified; Z13.1 Encounter for screening for diabetes mellitus
CPT/HCPCS: 36415; 82950; 85025; 86703; 86780

== ENCOUNTER → 2024-02-07 | Outpatient (CLI) | payer OTHER, SELFPAY ==
[2024-02-07 10:48] LABS: Glucose Challenge Gest 1H 50g 136 mg/dL (70-140)
== END | disposition home or self-care (01) ==
LOC: BWCLAB 08:57
PROVIDERS: PCP Nurse Practitioner Family; Referring Provider Advanced Practice Midwife; Visit Provider Advanced Practice Midwife
DX: O09.90 Supervision of high risk pregnancy, unspecified, unspecified trimester (principal); Z3A.00 Weeks of gestation of pregnancy not specified
CPT/HCPCS: 36415; 82950

== ENCOUNTER → 2024-02-11 | Outpatient (CLI) | payer OTHER, SELFPAY ==
[2024-02-11 07:19] LABS: Bedside Glucose 79 mg/dL (74-106)
[2024-02-11 07:26] LABS: Glucose GTT-Gestation. Fasting 88 mg/dL (<105)
== END | disposition home or self-care (01) ==
LOC: LAB 06:50
PROVIDERS: PCP Nurse Practitioner Family; Referring Provider Advanced Practice Midwife; Visit Provider Advanced Practice Midwife
DX: Z13.1 Encounter for screening for diabetes mellitus (principal)
CPT/HCPCS: 36415; 82951; 82952; 82962

== ENCOUNTER → 2024-03-27 | Outpatient (CLI) | payer OTHER, SELFPAY ==
--- NOTE | 2024-03-27 07:47 | US_ITS ---
PROCEDURE: OB LIMITED WITH BIOMETRICS REASON FOR EXAM: Growth. Gestational diabetes. COMPARISON: None. FINDINGS Number: 1 Position: Vertex Placental Position: Anterior and not low-lying. Placental Abnormalities: None. DIMENSIONS: Biparietal Diameter: 8.58 cm/34 weeks and 4 days: 20.4% Head Circumference: 32.07 cm 36 weeks and 1 day: 23.5%/32.03 cm 36 weeks 0 days: 59% Abdominal Circumference: 32.03 cm 36 weeks 0 days: 59%/ Femur Length: 6.58 cm 33 weeks 6 days: 5.9%/ ESTIMATED WEIGHT: 2640 g +/-396 g. 32.2 percentile ESTIMATED WEIGHT PERCENTILE (24+ weeks): 32.2 ESTIMATED GESTATIONAL AGE: Baseline: 36 weeks 0 days By Ultrasound: 35 weeks and 2 days ESTIMATED DATE OF DELIVERY: Baseline: April 16, 2024 By Ultrasound: April 29, 2024 BIOPHYSICAL ASSESSMENT: Amniotic Fluid Volume: 4.2 cm x 4.3 cm Amniotic Fluid Index: 14 (8-24 cm normal range) Cardiac Motion: 140 (average) Trunk and Limb Motion: Present. MATERNAL ANATOMY: Adnexa: Neither maternal ovary is successfully identified. Cervical Length (if measured): 3.7 cm US/OB Limited With Biometrics IMPRESSION: UNREMARKABLE ANATOMIC SURVEY. Reading Location: [place] [address]
== END | disposition home or self-care (01) ==
PROVIDERS: PCP Nurse Practitioner Family; Referring Provider Advanced Practice Midwife; Visit Provider Advanced Practice Midwife
DX: O09.90 Supervision of high risk pregnancy, unspecified, unspecified trimester (principal); Z3A.00 Weeks of gestation of pregnancy not specified
CPT/HCPCS: 76816; 87081

== ENCOUNTER → 2024-04-03 | Outpatient (CLI) | payer OTHER, SELFPAY ==
[2024-04-03 12:19] LABS: Protein, Urine (Random) 54.4 mg/dL (<11.9); Protein:Creat Ratio 446 mg/g CRE (0-200)
== END | disposition home or self-care (01) ==
LOC: LABSPEC 11:33
PROVIDERS: PCP Nurse Practitioner Family; Referring Provider Obstetrics & Gynecology; Visit Provider Obstetrics & Gynecology
DX: O12.10 Gestational proteinuria, unspecified trimester (principal); Z3A.00 Weeks of gestation of pregnancy not specified
CPT/HCPCS: 82570; 84156

== ENCOUNTER 2024-04-04 22:48 | Inpatient (IN) | payer OTHER, SELFPAY ==
[2024-04-04] VITALS (13 sets, daily range): BP systolic 130–140; BP diastolic 85–97; PULSE 79–95; RESP 16; TEMP 37.3; O2SAT 95–98; BMI 30.6
[2024-04-04 23:11] LABS: Absolute Lymphocyte Count 2.29 X10^3/uL (0.83-4.51); Absolute Neutrophil Count 6.4 X10^3/uL (2.0-7.7); Basophil# 0.02 X10^3/uL; Basophil% 0.2 % (0-1); Eosinophil# 0.11 X10^3/uL; Eosinophils% 1.2 % (0-5); Hematocrit 33.6 % (37-47); Hemoglobin 11.6 g/dL (12.0-15.0); Lymphocyte # 2.29 X10^3/ul (0.83-4.51); Lymphocyte % 24.3 % (19-41); Mean Corp Hgb Conc 34.5 g/dL (32-36); Mean Corpuscular Hgb 28.7 pg (27.0-32.0); Mean Corpuscular Volume 83.2 fL (81-99); Monocyte# 0.53 X10^3/uL; Monocyte% 5.6 % (0-10); NRBC Flagged by Analyzer 0 % (0-5); Neutrophil # 6.43 X10^3/uL (2.7-7.7); Neutrophil % 68.2 % (47-70); Platelet Count 262 K/mm3 (150-450); Red Blood Count 4.04 M/mm3 (4.2-5.4); White Blood Count 9.4 K/mm3 (4.4-11.0)
[2024-04-04 23:21] LABS: Creatinine, Urine (random) < 13.00 mg/dL (NO RANGE EST.); Protein, Urine (Random) < 6.0 mg/dL (<11.9)
[2024-04-04 23:22] LABS: AST(SGOT) 8 U/L (15-37); Alanine Aminotransfer ALT/SGPT 22 U/L (13-56); Creatinine, Serum 0.43 mg/dL (0.55-1.02); EST Glomerular Filtration Rate 181 mL/min (>60); Est Glom Filt Rate - Afr Amer 219 mL/min (>60); Estimated Creatinine Clearance 177.53 ml/min; Uric Acid 3.5 mg/dL (2.6-6.0)
[2024-04-04] MEDS: miSOPROStol 25 MCG TABLET VAGINAL (23:27)
[2024-04-05] VITALS (42 sets, daily range): BP systolic 112–159; BP diastolic 58–105; PULSE 70–114; RESP 14–18; TEMP 36.5–37.2; O2SAT 88–100
[2024-04-05 02:25] LABS: Bedside Glucose 88 mg/dL (74-106)
[2024-04-05 03:34] LABS: Bedside Glucose 89 mg/dL (74-106)
[2024-04-05] MEDS: miSOPROStol 25 MCG TABLET VAGINAL (03:44)
[2024-04-05 07:30] LABS: Bedside Glucose 72 mg/dL (74-106)
--- NOTE | 2024-04-05 09:46 | HP.PCM.OB_ITS ---
HPI - General General Date of Admission: 04/04/24 HPI Narrative AMPARO YOUNG, is a 33 y/o @ 37 week 2 days who presents to L&D with headaches and elevated bp. Her protein:cr ratio was consistent with pre-e and the decision was made to admit to L&D for IOL. Maternal Data Information YUNG Calculator Estimated Delivery Date Method Current WG Current Estimate 04/24/24 Ultrasound #1 37w 2d Other Estimates 04/17/24 LMP (Certain) 38w 2d [facility] Medical History (Updated 04/05/24 @ 10:[address] 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 PCOS (polycystic ovarian syndrome) Anxiety Home Medications ?Medication ?Instructions ?Recorded ?Last Taken ?Type sertraline 100 mg tablet 100 mg PO DAILY anxiety 04/2609/11/21 22:00 History multivitamin no.47-iron fum 27 1 cap PO DAILY pregnanv cy 06/15/20 09/11/21 22:00 History mg-folate no.1 1 mg-dha 300 mg capsule (PNV-DHA) famotidine 20 mg tablet (Pepcid AC) 20 mg PO DAILY 04/20 Unknown History blood sugar diagnostic (Blood #120 ea 02/11/24 Unknown Rx Glucose Test strips) blood-glucose meter #1 ea 02/11/24 Unknown Rx lancets 30 gauge (Droplet Lancets) #200 ea 02/11/24 Un known Rx pyridoxine (vitamin B6) 500 mg 500 mg PO QDAY 03/27/24 Unknown History tablet Allergy/AdvReac Type Severity Reaction Status Date / Time amoxicillin Allergy Hives Verified 04/04/24 22:03 Family History Father Hypertension Kidney disease Thyroid cancer Hemochromatosis Grandfather Myocardial infarction Grandmother Hypertension Surgical History History of surgery Pilonidal cyst Social History adopted: No household members: spouse housing: house number of children: 1 current occupational status: employed current occupation: [employer] pets and animals: Yes pets and animals: dog(s) history of recent travel: No sexually active: Yes Smoking Status: Never smoker second hand exposure: No alcohol intake: never substance use type: does not use well-balanced diet: daily or most days caffeine: Yes Type: coffee Number of servings: 1 eating out: rarely or never during the past year weight has: remained stable what type of physical activity do you participate in: walking frequency: 1-2 times per week duration: 15-30 minutes/day ángel/latter-day: Temple seatbelt use: always do you feel safe at home: Yes additional social history: - Jarod History 3 Elective abortions Hx Para 1 Spontaneous abortions 1 Hx # Term Pregnancies Ectopic pregnancies Hx # Pregnancies Multiple births # of living children 1 Past Pregnancies Del. Date Name GA/Weeks Outcome Route Bth Weight Infant Gen Labor Lgth Anesthesia Del Locatn Provider FOB 06/22/19 6 spontaneous 09/13/21 Jaun 39 live - full term 7lbs 14oz Male [facility] Dr. Gale Delivery Date: 09/13/21 Last Updated by: Sofya Hyatt Infertility Visit Details Expected Delivery Route/Plan Labor Preferences- CB/BF classes: [] labor support person: [] labor intervention preferences: [] pain management options preferred: [] cut cord/dad catch: [] : [] PP control planned: [] discussed possible routes of delivery and associated risks: [] special requests: [] Plans Covid status: [] Flu vaccine: declined Tdap vaccine: [] Rhogam: [] LARC form signed: [] Problem list reviewed and updated with the most current plan of care details and appropriate orders placed. Relevant counseling for the gestational age provided. Continue routine care and follow up unless otherwise noted in visit notes/problem list details OB Flowsheet Initial Weight: Not Recorded Date -?-?-?-?-?-?-?-?-?-?-?-?- EGA Weight BP Urine Prot -?-?-?-?-?-?-?-?-?-?-?-?- Glucose FHR FuHt Pres Dilation -?-?-?-?-?-?-?-?-?-?-?-?- Effaced St Visit Note 09/30/23 -?-?-?-?-?-?-?-?-?-?-?-?- 10w 3d 143 lb 8 oz 117/79 -?-?-?-?-?-?-?-?-?-?-?-?- 165 -?-?-?-?-?-?-?-?-?-?-?-?- JV- CRL 37.5mm JV- CRL 37.5mm and not consi stent with LMP. measuring 10 weeks 3 days. new YUNG 04/24/24. desires NIPT. 10/31/23 -?-?-?-?-?-?-?-?-?-?-?-?- 14w 6d 144 lb 117/75 Negative -?-?-?-?-?-?-?-?-?-?-?-?- Negative 154 -?-?-?-?-?-?-?-?-?-?-?-?- KW- no vb/crampi ng. US ordered. declines AFP. 12/05/23 -?-?-?-?-?-?-?-?-?-?-?-?- 19w 6d 144 lb 111/77 Negative -?-?-?-?-?-?-?-?-?-?-?-?- Negative 150 -?-?-?-?-?-?-?-?-?-?-?-?- SM- no vb crampi ng 12/27/23 -?-?-?-?-?-?-?-?-?-?-?-?- 23w 0d 147 lb 103/65 Negative -?-?-?-?-?-?-?-?-?-?-?-?- Negative 150 22 -?-?-?-?-?-?-?-?-?-?-?-?- KW- no vb/ cramp ing. good fm. 28 week labs discussed 01/31/24 -?-?-?-?-?-?-?-?-?-?-?-?- 28w 0d 151 lb 108/71 Negative -?-?-?-?-?-?-?-?-?-?-?-?- 1000 g/dL 150 28 -?-?-?-?-?-?-?-?-?-?-?-?- KW- no vb/crampi ng. good fm. Tdap and LARC today. 28 week labs today. declines flu. 02/14/24 -?-?-?-?-?-?-?-?-?-?-?-?- 30w 0d 157 lb 4 oz 116/80 Nega tive -?-?-?-?-?-?-?-?-?-?-?-?- Negative 150 30 -?-?-?-?-?-?-?-?-?-?-?-?- sm- NO VB LOF GO OD FM NO REUGLAR CTX STILL HAVING SOME NAUSEA, STARTNG TO CHECK SUGARS, DECLINED 3 HOUR GCT 02/28/24 -?-?-?-?-?-?-?-?-?-?-?-?- 32w 0d 159 lb 8 oz 115/78 Nega tive -?-?-?-?-?-?-?-?-?-?-?-?- Negative 140 32 -?-?-?-?-?-?-?-?-?-?-?-?- KW- no vb/lof/ct x. good fm . BS reviewed- had a few elevated fastings over solo. Much better now. will continue to track until next visit. Growth US ordered 03/13/24 -?-?-?-?-?-?-?-?-?-?-?-?- 34w 0d 163 lb 114/78 Negative -?-?-?-?-?-?-?-?-?-?-?-?- Negative 145 34 -?-?-?-?-?-?-?-?-?-?-?-?- LC- no vb/ctx/lo f. good fm. x3 elevated pp (120-130s) all fastings under 95. growth scheduled. 03/27/24 -?-?-?-?-?-?-?-?-?-?-?-?- 36w 0d 165 lb 4 oz 118/53 Trac e -?-?-?-?-?-?-?-?-?-?-?-?- Negative 140 34 Cephalic 1 -?-?-?-?-?-?-?-?-?-?-?-?- SM- no vb lof go od fm no regular ctx gbs today growth US done 04/03/24 -?-?-?-?-?-?-?-?-?-?-?-?- 37w 0d 165 lb 6 oz 131/80 1+ -?-?-?-?-?-?-?-?-?-?-?-?- Negative 147 37 Cephalic -?-?-?-?--?-?-?-?-?-?-?-?- JV- ultrasound s howed saul of 14 and normal growth last week glucose log is normal. Still has a cold and thinks dehydrated. sending urine off for prot: cr ratio. has no symptoms. ROS Constitutional Constitutional: Denies change in weight, fatigue, fever(s), headache(s), poor appetite or weakness Eyes Eyes: Denies blurry vision, change in vision, seeing flashes or spots in vision ENT HEENT: Denies dizziness, headache(s), loss taste/smell or sore throat Cardiovascular Cardiovascular: Denies chest pain, dizziness, dyspnea, irregular heart rhythm, leg edema, palpitations, rapid heart rate or vomiting Respiratory/Chest Respiratory/Chest: Denies chest tightness, cough, dyspnea or breast pain Gastrointestinal Gastrointestinal: Denies abdominal pain, anorexia, constipation, cramping, diarrhea, hemorrhoids, vomiting or weight changes Genitourinary Genitourinary: Denies dysuria, flank pain, genital lesions, genital pain, urinary frequency or urinary urgency Musculoskeletal Musculoskeletal: Denies back pain, difficulty walking, joint pain, limited range of motion, muscle cramps or numbness Integumentary Integumentary: Denies lesions or unusual bruising Neurologic Neurologic: Denies abnormal movements, abnormal speech, dizziness, numbness, seizure-like activity or syncope Psychiatric Psychiatric: Denies anxiety, behavioral changes, change in appetite, change in libido, cognitive impairment, confusion, depression, difficulty concentrating, hallucinations or suicidal thoughts Endocrine Endocrinology: Denies excessive sweating, polydipsia or polyuria Hematologic/Lymphatic Hematologic/Lymphatic: Denies easy bleeding, easy bruising or lymphadenopathy Allergic/Immunologic Allergic/Immunologic: Denies itchy eyes, lip swelling, seasonal rhinorrhea, rhinitis, throat swelling, tongue swelling, eczemia, wheezing or asthma Vital Signs Vital Signs Vital Signs: 04/04/24 22:08 04/04/24 22:08 04/04/24 22:09 Temperature Temperature Source Pulse Rate 82 83 Respiratory Rate Blood Pressure 140/97 H BP Systolic 140 BP Diastolic 97 Pulse Ox 04/04/24 22:09 04/04/24 22:10 04/04/24 22:10 Temperature Temperature Source Temporal Pulse Rate Respiratory Rate 16 Blood Pressure BP Systolic BP Diastolic Pulse Ox 95 04/04/24 22:10 04/04/24 22:24 04/04/24 22:24 Temperature 99.2 F H Temperature Source Pulse Rate 86 Respiratory Rate Blood Pressure 130/96 H BP Systolic 130 BP Diastolic 96 Pulse Ox 04/04/24 22:36 04/04/24 22:36 04/04/24 22:39 Temperature Temperature Source Pulse Rate 82 Respiratory Rate Blood Pressure 134/85 H 135/88 H BP Systolic 134 135 BP Diastolic 85 88 Pulse Ox 04/04/24 22:39 04/04/24 22:56 04/04/24 22:56 Temperature Temperature Source Pulse Rate 83 95 Respiratory Rate Blood Pressure 136/89 H BP Systolic 136 BP Diastolic 89 Pulse Ox 04/04/24 23:11 04/04/24 23:11 04/04/24 23:35 Temperature Temperature Source Pulse Rate 82 84 Respiratory Rate Blood Pressure 133/90 H BP Systolic 133 BP Diastolic 90 Pulse Ox 04/04/24 23:35 04/04/24 23:40 04/04/24 23:40 Temperature Temperature Source Pulse Rate 86 Respiratory Rate Blood Pressure BP Systolic BP Diastolic Pulse Ox 98 98 04/04/24 23:45 04/04/24 23:45 04/04/24 23:50 Temperature Temperature Source Pulse Rate 83 81 Respiratory Rate Blood Pressure BP Systolic BP Diastolic Pulse Ox 98 04/04/24 23:50 04/04/24 23:55 04/04/24 23:55 Temperature Temperature Source Pulse Rate 79 Respiratory Rate Blood Pressure BP Systolic BP Diastolic Pulse Ox 97 96 04/05/24 00:00 04/05/24 00:00 04/05/24 00:05 Temperature Temperature Source Pulse Rate 84 83 Respiratory Rate Blood Pressure BP Systolic BP Diastolic Pulse Ox 97 04/05/24 00:05 04/05/24 00:06 04/05/24 00:06 Temperature Temperature Source Temporal Pulse Rate Respiratory Rate 16 Blood Pressure BP Systolic BP Diastolic Pulse Ox 96 04/05/24 00:06 04/05/24 00:07 04/05/24 00:07 Temperature 98.8 F Temperature Source Pulse Rate 74 Respiratory Rate Blood Pressure 117/64 BP Systolic 117 BP Diastolic 64 Pulse Ox 04/05/24 01:20 04/05/24 01:20 04/05/24 01:20 Temperature Temperature Source Temporal Pulse Rate 75 Respiratory Rate 16 Blood Pressure BP Systolic BP Diastolic Pulse Ox 04/05/24 01:20 04/05/24 01:20 04/05/24 01:21 Temperature 98.8 F Temperature Source Pulse Rate Respiratory Rate Blood Pressure 129/82 H BP Systolic 129 BP Diastolic 82 Pulse Ox 98 04/05/24 01:21 04/05/24 02:14 04/05/24 02:14 Temperature Temperature Source Temporal Pulse Rate 77 Respiratory Rate Blood Pressure 129/77 H BP Systolic 129 BP Diastolic 77 Pulse Ox 04/05/24 02:14 04/05/24 02:14 04/05/24 02:14 Temperature Temperature Source Pulse Rate 77 Respiratory Rate 16 Blood Pressure BP Systolic BP Diastolic Pulse Ox 98 04/05/24 02:14 04/05/24 04:27 04/05/24 04:27 Temperature 97.9 F Temperature Source Temporal Pulse Rate 78 Respiratory Rate Blood Pressure BP Systolic BP Diastolic Pulse Ox 04/05/24 04:27 04/05/24 04:27 04/05/24 04:27 Temperature 97.7 F L Temperature Source Pulse Rate Respiratory Rate 16 Blood Pressure BP Systolic BP Diastolic Pulse Ox 98 04/05/24 04:28 04/05/24 04:28 04/05/24 05:59 Temperature Temperature Source Temporal Pulse Rate 73 Respiratory Rate Blood Pressure 112/72 BP Systolic 112 BP Diastolic 72 Pulse Ox 04/05/24 05:59 04/05/24 05:59 04/05/24 05:59 Temperature Temperature Source Pulse Rate 72 Respiratory Rate 16 Blood Pressure BP Systolic BP Diastolic Pulse Ox 97 04/05/24 05:59 04/05/24 06:00 04/05/24 06:00 Temperature 98.5 F Temperature Source Pulse Rate 70 Respiratory Rate Blood Pressure 120/58 L BP Systolic 120 BP Diastolic 58 Pulse Ox 04/05/24 08:50 04/05/24 08:50 04/05/24 08:50 Temperature Temperature Source Temporal Pulse Rate 90 Respiratory Rate Blood Pressure 133/90 H BP Systolic 133 BP Diastolic 90 Pulse Ox 04/05/24 08:50 04/05/24 08:50 04/05/24 08:50 Temperature Temperature Source Pulse Rate 90 Respiratory Rate 14 Blood Pressure BP Systolic BP Diastolic Pulse Ox 97 04/05/24 08:50 Temperature 98.9 F Temperature Source Pulse Rate Respiratory Rate Blood Pressure BP Systolic BP Diastolic Pulse Ox Weight Weight: 167 lb 6.4 oz Body Mass Index (BMI) 30.6 Physical Exam Const alert, oriented x3, no apparent distress and healthy appearing General Appearance: cooperative; Negative for anxious HEENT normocephalic Face and Sinus: normal facial exam Eyes EOMs intact bilaterally and no scleral icterus General Eye: normal appearance of both eyes Neck full ROM and supple Lymph Lymphatic: no lymphadenopathy noted Chest Chest: abnormal inspection of the chest Resp normal respiratory effort Effort and Inspection: able to speak in complete sentences Cardio regular rate GI soft to palpation and non-tender Inspection: gravid Palpation: soft; Negative for tender external exam normal Narrative: cervix, after 3 doses of cytotec is 3/80/-1. membranes ruptured artificially and clear fluid returned. Back/Spine no CVA tenderness Extremity normal to inspection, full ROM and no clubbing, cyanosis or edema General Extremity: Negative for calf tenderness or edema Skin Lesions: no lesions Rashes: no rashes Psych mental status grossly normal Labs Labs Labs: Blood Type O POSITIVE Antibody Screen NEGATIVE Hct 33.6 % (37-47) L Hgb 11.6 g/dL (12.0-15.0) L Obstetrics Ultrasound Syphilis Total Ab Non-reactive Rubella IgG Antibody Reactive (Nonreactive) Hep Bs Antigen Non-Reactive (Nonreactive) Hepatitis C Antibody Non-Reactive (Nonreactive) Chlamydia DNA (IRMA) Negative (Negative) N.gonorrhoeae DNA (IRMA) Negative (Negative) HIV 1&2 Antibody Non-Reactive (Nonreactive) Glucose 1 Hr 50 gm 136 mg/dL (70-140) Gest Glucose Tolerance MG/DL Rhogam given: No Assessment & Plan (1) Abnormal glucose affecting : COMMENT: unable to complete 3 HR d/t vomiting. Will test BS QID (2) Supervision of high-risk : COMMENT: PRR,, YUNG 04/24/24, girl Sofya? ELISABET Jaun, Jarod (3) Severe pre-eclampsia: (4) : QUALIFIERS: Weeks of gestation: 37 weeks Qualified Code(s): Z3A.37 - 37 weeks gestation of COMMENT: Neg GBS. low risk NIPT, carrier negative, declined afp screen. (5) Anxiety: COMMENT: Zoloft 100mg QD- patient is doing well PLAN: Plan Patient presents IOL, plan management for - s/p cytotec over night and AROM this morning during exam. pitocin today prn Pain management: plans epidural. GBS negative. Management of any complications: see above I have reviewed the PFSH and made any clinically relevant updates.
[2024-04-05 10:49] LABS: Syphilis Antibodies Non-reactive
[2024-04-05 11:26] LABS: Bedside Glucose 82 mg/dL (74-106)
[2024-04-05] MEDS: Lactated Ringers 1,000 ML 50 ML IV (14:30)
[2024-04-05] MEDS: Oxytocin 15 Units/NS 250ml 15 UNITS/250 ML IV.SOLN 2 UNITS IV (14:32)
[2024-04-05 15:30] LABS: Bedside Glucose 79 mg/dL (74-106)
[2024-04-05] MEDS: Ondansetron 4 MG/2 ML Vial IV (15:38)
--- NOTE | 2024-04-05 17:43 | OB.VAGDELI_ITS ---
Assessment & Plan (1) Severe pre-eclampsia: (2) Abnormal glucose affecting : COMMENT: unable to complete 3 HR d/t vomiting. Will test BS QID (3) Supervision of high-risk : COMMENT: PRR,, YUNG 04/24/24, girl Sofya? PC Jaun, Jarod (4) : QUALIFIERS: Weeks of gestation: 37 weeks Qualified Code(s): Z3A.37 - 37 weeks gestation of COMMENT: Neg GBS. low risk NIPT, carrier negative, declined afp screen. (5) Anxiety: COMMENT: Zoloft 100mg QD- patient is doing well Maternal Data Information YUNG Calculator Estimated Delivery Date Method Current WG Current Estimate 04/24/24 Ultrasound #1 37w 2d Other Estimates 04/17/24 LMP (Certain) 38w 2d Final YUNG: 05/22/24 Final YUNG Source: US <20 weeks Gestational age: 37 weeks 2 days Vaginal Delivery Maternal Presentation Maternal Presentation: Medically Indicated Induction Maternal Presentation: pre-eclampsia with severe features Type of Induction: Pitocin, Amniotomy and Cytotec Medical Reason for Induction: Preeclampsia, eclampsia Vaginal Delivery Information Procedure Performed: Spontaneous Vaginal Delivery Surgeon/Practitioner: Korin Copeland Date of Procedure: 04/05/24 Pre-Procedure Diagnosis: 33 y/o @ 37 weeks 2 days, pre-eclampsia with severe features Post-Procedure Diagnosis: 33 y/o @ 37 weeks 2 days, pre-eclampsia with severe features Type of anesthesia: None Estimated Blood Loss: 50cc Time of Delivery: 17:32 Findings Description of procedure: Patient began pushing and delivered the head in the NICOLE presentation. The head was delivered atraumatically and a loose nuchal cord ?1 was identified but because she was delivering, there was no time to reduce the cord. The anterior and posterior shoulders delivered without complication followed by the rest of the and the infant was placed on the maternal abdomen after the cord was untangled. Delayed cord clamping was employed for approximately 60 seconds. Cord was clamped and cut and gentle traction was applied to the cord and the placenta delivered spontaneously immediately following it was noted to be intact with three-vessel cord. The perineum and vagina were inspected and noted to have no laceration. EBL was 50cc. Patient and infant tolerated delivery well. Procedure findings: viable female scores 8/9 Sofya Presentation: Vertex Amniotic Membrane Rupture Type: Artificial Amniotic Fluid Description: Clear Placental Delivery Description: Spontaneous Placenta Disposition: [facility] Specimen collected: No Cord Vessel Description: 3 Vessels Cord Entanglement: Around neck x 1, loose A Gender: Female (1 minute): 8 (5 minute): 9 Delayed Cord Clamping: Yes Network Security Administrator trouble shooter: No Post Vaginal Deli Medications given after delivery: IV Pitocin Episiotomy Description: None Laceration: None Complication Complications: No Multi Select Codes Urinary/Genital Urinary/Genital CPT Codes: 60916 Vaginal Delivery [facility]
--- NOTE | 2024-04-05 17:47 | PCM.DC ---
Discharge Instructions Diet Discharge Diet: No restrictions DC O2, CPAP, BIPAP needs Home O2 Discharge instructions: No Dressing / Incision Discharge Activity: Return to Normal Activity, May Not Drive (while taking narcotic pain medications.) and May Shower May resume sexual activity in: 4-6 weeks Dressing / Incision Call your doctor if your incision/area has: Continuous Slow Oozing, Sudden Increased Bleeding, Increased Pain/ Swelling, Increased Redness and Foul Smelling Discharge Follow Up Care Please Follow Up With: Korin Copeland DO When: Call [phone] to make an appointment with your doctor in 6 weeks. If you had elevated blood pressure or 4th degree laceration, you will need to be seen in 2 weeks. Test Results: Test results from this visit will be discussed in further detail at your follow-up appointment, if applicable. Discharge Plan Admission Admit Date/Time: 04/04/24 22:48 Attending Provider: Korin Copeland Primary Care Provider: Matilde Bailey NP Discharge Orders/Prescriptions Prescriptions: No Action PNV-DHA 27 mg iron-1 mg -300 mg capsule 1 cap PO DAILY famotidine [Pepcid AC] 20 mg tablet 20 mg PO DAILY pyridoxine (vitamin B6) 500 mg tablet 500 mg PO QDAY sertraline 100 MG tablet 100 mg PO DAILY (DME) blood-glucose meter Misc See Rx Instructions .ROUTE .MEDSUPPLY Qty: 1 0RF Rx Instructions: As directed (DME) Blood Glucose Test Strip See Rx Instructions .ROUTE .MEDSUPPLY Qty: 120 6RF Rx Instructions: Check blood sugars Fasting and 2 hours after breakfast, lunch, and dinner. (DME) lancets [Droplet Lancets] 30 gauge misc See Rx Instructions .ROUTE .MEDSUPPLY Qty: 200 6RF Rx Instructions: Check blood sugars fasting and 2 hours after breakfast, lunch, and supper. Referrals / Follow Up: Matilde Bailey NP, TRANSFER AND PUMPHOUSE OPERATOR CHIEF-C [Primary Care Provider] -
[2024-04-05] MEDS: Oxytocin 15 Units/NS 250ml 15 UNITS/250 ML IV.SOLN 83 UNITS IV (18:30)
[2024-04-05 20:54] LABS: Bedside Glucose 100 mg/dL (74-106)
[2024-04-05] MEDS: Ibuprofen 600 MG Tablet PO (20:59)
[2024-04-06 03:15] VITALS: BP 120/89; PULSE 97; RESP 16; TEMP 36.4; O2SAT 98
[2024-04-06 05:42] LABS: Bedside Glucose 115 mg/dL (74-106)
[2024-04-06] MEDS: Ibuprofen 600 MG Tablet PO ×2 (07:00→20:08)
[2024-04-06 08:45] VITALS: BP 132/90; PULSE 97; RESP 17; TEMP 36.5
--- NOTE | 2024-04-06 08:57 | PN.OBGYN_ITS ---
Subjective Subjective Patient doing well without complaints. Tolerating PO. Ambulating and voiding without difficulty. Feeding well. Denies chest pain, shortness of breath, calf pain/swelling, fevers, chills, lightheadedness. Objective Data Objective Data Vital Signs: Vital Signs Temp Pulse Resp BP Pulse Ox O2 Del Method 97.7 F L 97 17 132/90 H 98 Room Air 04/06/24 08:45 04/06/24 08:45 04/06/24 08:45 04/06/24 08:45 04/06/24 03:15 04/06/24 08:45 Oxygen Delivery Method Room Air Weight: 167 lb 6.4 oz Body Mass Index (BMI) 30.6 Intake & Output: Intake and Output for Last 24 Hours 04/04/24 04/05/24 04/06/24 23:59 23:59 23:59 Intake Total 2055.00 / 2055.00 Output Total 1200 / 1200 Balance 855.00 / 855.00 Lab / Micro Data 04/04/24 22:30 04/04/24 22:30 Labs: Laboratory Results - last 24 hr 04/04/24 22:30: Syphilis Total Ab Non-reactive 04/05/24 11:08: POC Glucose 82 04/05/24 15:00: POC Glucose 79 04/05/24 17:59: POC Glucose 100 04/06/24 05:19: POC Glucose 115 H ROS Constitutional Constitutional: Reports systems reviewed and no addt'l complaints, except as documented; Denies anorexia or headache(s) Cardiovascular Cardiovascular: Reports systems reviewed and no addt'l complaints, except as documented; Denies dizziness, dyspnea, nausea or tachypnea Respiratory/Chest Respiratory/Chest: Reports systems reviewed and no addt'l complaints, except as documented; Denies cough, dyspnea, shortness of breath at rest or tachypnea Gastrointestinal Gastrointestinal: Reports systems reviewed and no addt'l complaints, except as documented; Denies abdominal pain, constipation or nausea Genitourinary Genitourinary: Reports systems reviewed and no addt'l complaints, except as documented; Denies burning urination, difficulty urinating, dysuria, urinary frequency or urinary incontinence Musculoskeletal Musculoskeletal: Reports systems reviewed and no addt'l complaints, except as documented Integumentary Integumentary: Reports systems reviewed and no addt'l complaints, except as documented Neurologic Neurologic: Reports systems reviewed and no addt'l complaints, except as documented; Denies abnormal speech, dizziness or headache(s) Psychiatric Psychiatric: Reports systems reviewed and no addt'l complaints, except as documented Endocrine Endocrinology: Reports systems reviewed and no addt'l complaints, except as documented Hematologic/Lymphatic Hematologic/Lymphatic: Reports systems reviewed and no addt'l complaints, except as documented Physical Exam Const alert, oriented x3 and no apparent distress Neck full ROM Resp normal respiratory effort, normal air movement and no retractions Effort and Inspection: able to speak in complete sentences and symmetric chest movement GI soft to palpation Bladder / Kidney Exam: bladder normal to palpation Uterus Palpation: uterus fundus firm Extremity normal to inspection and full ROM Psych mental status grossly normal, thought process normal and cooperative Assessment & Plan (1) Vaginal delivery: PLAN: s/p PPD # 1 1. routine post delivery care 2. breast feeding- support given 3. rh positive 4. rubella immune (2) Severe pre-eclampsia: (3) Abnormal glucose affecting : COMMENT: unable to complete 3 HR d/t vomiting. Will test BS QID (4) Supervision of high-risk : COMMENT: PRR,, YUNG 04/24/24, girl Sofya? ELISABET Zamorano, Jarod (5) : QUALIFIERS: Weeks of gestation: 37 weeks Qualified Code(s): Z 3A.37 - 37 weeks gestation of COMMENT: Neg GBS. low risk NIPT, carrier negative, declined afp screen. (6) Anxiety: COMMENT: Zoloft 100mg QD- patient is doing well Charges/Coding Multi Select Codes Urinary/Genital Urinary/Genital CPT Codes: No Charge
[2024-04-06] MEDS: Sertraline 100 MG Tablet PO (10:11)
[2024-04-06 12:11] VITALS: BP 133/2; PULSE 91; RESP 16; TEMP 36.7
[2024-04-06 16:20] VITALS: BP 122/80; PULSE 92; RESP 18; TEMP 36.4
[2024-04-06 20:00] VITALS: BP 142/91; PULSE 90; RESP 16; TEMP 36.6; O2SAT 98
[2024-04-07 02:55] VITALS: BP 128/84; PULSE 114; RESP 15; TEMP 36.4; O2SAT 97
[2024-04-07 07:23] VITALS: BP 124/89; PULSE 92; RESP 18; TEMP 36.7; O2SAT 97
--- NOTE | 2024-04-07 07:54 | PN.OBGYN_ITS ---
Subjective Subjective Patient doing well without complaints. Tolerating PO. Ambulating and voiding without difficulty. Feeding well. Denies chest pain, shortness of breath, calf pain/swelling, fevers, chills, lightheadedness. Objective Data Objective Data Vital Signs: Vital Signs Temp Pulse Resp BP Pulse Ox O2 Del Method 98.0 F 92 18 124/89 H 97 Room Air 04/07/24 07:23 04/07/24 07:23 04/07/24 07:23 04/07/24 07:23 04/07/24 07:23 04/07/24 07:23 Oxygen Delivery Method Room Air Weight: 167 lb 6.4 oz Body Mass Index (BMI) 30.6 Intake & Output: Intake and Output for Last 24 Hours 04/05/24 04/06/24 04/07/24 23:59 23:59 23:59 Intake Total 2055.00 / 2055.00 Output Total 1200 / 1200 Balance 855.00 / 855.00 Lab / Micro Data 04/04/24 22:30 04/04/24 22:30 Physical Exam Const alert and oriented x3 HEENT normocephalic Eyes PERRL Neck full ROM Resp normal respiratory effort GI soft to palpation GI Narrative: FF below U Assessment & Plan (1) Vaginal delivery: COMMENT: 11/04/24 EZIO Cowart (2) Severe pre-eclampsia: QUALIFIERS: Trimester: unspecified trimester Qualified Code(s): O 14.10 - Severe pre-eclampsia, unspecified trimester COMMENT: stable pp (3) Anxiety: COMMENT: Zoloft 100mg QD- patient is doing well; stable pp PLAN: Plan s/p PPD # 2 1. routine post delivery care 2. breast feeding- support given 3. rh positive 4. rubella immune 5. BP stable pp. Reviewed pre E S&S to watch for at home and monitor BP and when to call office 6. Home today
--- NOTE | 2024-04-07 07:57 | DCINST_ITS ---
Discharge Instructions Diet Discharge Diet: No restrictions DC O2, CPAP, BIPAP needs Home O2 Discharge instructions: No Dressing / Incision Discharge Activity: Return to Normal Activity, May Not Drive (while taking narcotic pain medications.) and May Shower May resume sexual activity in: 4-6 weeks Additional Activity Instructions:: Nothing in the vagina for 4-6 weeks. You may return to work/school in 6 weeks. Dressing / Incision Call your doctor if your incision/area has: Continuous Slow Oozing, Sudden Increased Bleeding, Increased Pain/ Swelling, Increased Redness and Foul Smelling Discharge Follow Up Care Please Follow Up With: Korin Copeland, DO When: Call to make an appointment with your doctor in 6 weeks. If you had elevated Blood Pressure or 4th degree laceration you will need to be seen in 2 weeks. Test Results: Test results from this visit will be discussed in further detail at your follow- up appointment, if applicable. Discharge Plan Admission Admit Date/Time: 04/04/24 22:48 Attending Provider: Korin Copeland Primary Care Provider: Matilde Bailey NP Discharge Orders/Prescriptions Prescriptions: No Action PNV-DHA 27 mg iron-1 mg -300 mg capsule 1 cap PO DAILY famotidine [Pepcid AC] 20 mg tablet 20 mg PO DAILY pyridoxine (vitamin B6) 500 mg tablet 500 mg PO QDAY sertraline 100 MG tablet 100 mg PO DAILY (DME) blood-glucose meter Misc See Rx Instructions .ROUTE .MEDSUPPLY Qty: 1 0RF Rx Instructions: As directed (DME) Blood Glucose Test Strip See Rx Instructions .ROUTE .MEDSUPPLY Qty: 120 6RF Rx Instructions: Check blood sugars Fasting and 2 hours after breakfast, lunch, and dinner. (DME) lancets [Droplet Lancets] 30 gauge misc See Rx Instructions .ROUTE .MEDSUPPLY Qty: 200 6RF Rx Instructions: Check blood sugars fasting and 2 hours after breakfast, lunch, and supper. Referrals / Follow Up: Matilde Bailey NP, AIR TUBE RELEASER-C [Primary Care Provider] -
[2024-04-07] MEDS: Sertraline 100 MG Tablet PO (10:13)
[2024-04-07 11:41] VITALS: BP 119/79; PULSE 93; RESP 18; TEMP 37.1; O2SAT 98
--- NOTE | 2024-04-07 12:30 | CASEMGMT ---
Social Work Assessment Labor and Delivery Unit Patient Address: [address] [place] [address]. [place] [address] Phone number: [phone] Date of Referral: 04/05/2024 Time of Referral:?1819 Referred By: Dr. Copeland Date of Intervention: 04/07/2024 Time of Intervention:?1045 Reason for Referral: mental health; history of depression History obtained from: medical records, mother of baby (MOB) Garima, father of baby (FOB) Jarod Household composition: SHARMILA reports living with FOKayla and their 2.5 year old son, Jaun. [facility] baby, Sofya Sibley, to be added to home when ready for discharge. MOB and FOB both report housing is safe and secure. Patient's parent/guardian status:?MOB reports that FOB is Jarod Espino, MOB's . FOB and MOB have been together since 2009 and since 2012. Medical History: ?SHARMILA is a 33 year old female who is 3, para 1 - now 2 following labor and delivery of . SHARMILA received routine care during with [facility]. SHARMILA presented to hospital for pre-eclampsia at 37 weeks gestation on 04/05/24. [facility] baby girl, Sofya Sibley, was born weighing 4lbs, 15oz with apgars of 8 and 9 at one and five minutes of life respectively. SHARMILA is breast feeding baby and baby will be followed by Dr. Lu for pediatrics. Educational Status:?MOB states being a high school graduate and having an associates degree in nursing. 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 SHARMILA is currently not working there due to weather and is able to take a substantial amount of time off of work prior to working again. Supplies: SHARMILA has obtained all necessary baby supplies, including: car seat, safe sleep space, clothes, diapers, and wipes. MOB reports to having 4 nieces who handed down more supplies than what MOB currently needs. FOB reports premature baby clothing was the only need, but FOB reported having an [employer] delivery coming to the home today. Childcare/Caregiver(s):? MOB states not needing childcare due to being a seasonal employee. When MOB begins working again, MOB states ability to take children with MOB to the dairy farm where MOB's boss and family help to take care of MOB children. 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 FOB reports having reliable vehicles. Programs/Agencies Involved: MOB and FOB deny any past or current involvement with agencies or programs. Children Services/Legal Issues:?MOB and FOB deny any past or current CSB or legal issues. Behavioral Health Issues: ??Mental Health History:?MOB states taking Zoloft for anxiety for many years now. MOB states this is prescribed by MOB's PCP, Matilde Bailey. MOB states never doing counseling and not knowing if MOB would like to start anything now, but MOB did accept local counseling agencies as well as [employer] for an online option. MOB states starting Zoloft when MOB's life was busy and stressful, including starting nursing school, uprooting current supports and moving to [place] due to FOB being in the , etc. MOB states feeling good now, though knowing SHARMILA is at high risk for mental health struggles due to history.?? Substance Use History:?MOB denies any substance use, current or historical.? Family History:?MOB reports that SHARMILA's father has chronic kidney disease and may struggle with depression because of that, though MOB was not certain. MOB stated FOKayla donated a kidney to SHARMILA's father. MOB denies any other family history of mental health struggles.?? Drug Screens: N/A PHQ-9: MOB scored a 15 on the PHQ-9 and a 10 on the [place] depression scale. MOB stated the PHQ-9 score was situational stress rather than normally feeling this way. MOB clarified that SHARMILA was sick the week prior to , as well as received word that SHARMILA had pre-eclampsia which was never on MOB's record. MOB stated that due to these feelings, the last two weeks have been rough, but MOB reported feeling completely fine now. MOB reports never experiencing suicidal ideation. Family/Social Stressors:? MOB reports becoming sick a week prior to giving to Sofya. MOB reports this as a stressor, combined with finding out for the first time that pre-eclampsia was a possibility for MOB, especially given that it was never on MOB's radar. MOB denies further stressors at this time. Support Systems: MOB states feeling supported by MOB's parents and MOB's sister. FOB states support also comes from FOB's mother and FOB's brother when needed, as well as support by MOB's boss/friend. Depression/Shaken Baby/Safe Sleeping: SW educated MOB on signs and symptoms of baby blues and mood and anxiety disorders to be mindful of during this period. MOB states not experiencing these symptoms with MOB's first child, but MOB states being aware of what to be mindful of during this period. MOB states FOB as being a big support, specifically stating FOB waking up in the night to take care of MOB's other child last week when MOB was sick. MOB states knowing MOB can talk with FOB if MOB were to struggle with mental health. SW encouraged MOB to continue to be open with OBGYN as well. SW educated MOB on shaken baby prevention and ABCs of safe sleep. MOB expressed understanding. ASSESSMENT:? MOB and baby admitted following labor and delivery. MOB has history of depression and anxiety and takes Zoloft to help manage. This is MOB's second child and MOB is currently living with FOB/ and both children. MOB open to resources and was talkative and open during completion of assessment. FOB appeared comfortable and willingly left room at request to complete [place] depression screening. MOB was receptive to resources provided and discussed. MOB was holding sleeping baby on chest throughout assessment and was observed to be supportive of baby. Safe Plan of Care for infant related to substance use:? N/A PLAN:? no other services requested or indicated. MOB and baby to be discharged when medically ready. Parents were provided literature regarding: signs and symptoms of baby blues and mood and anxiety disorders, Help Me Grow, shaken baby prevention, ABCs of safe sleep, list of county resources that are available should needs present, list of counseling resources, and [employer] for virtual counseling support. Ana M Edward, SUGAR HOUSE SUPERVISOR, CUSTOMER SOLUTIONS TEAMMATE
== END 2024-04-07 12:15 | disposition home or self-care (01) | DRG 807 ==
LOC: WPOUT 22:51 → WP 22:51
PROVIDERS: Admitting Provider Obstetrics & Gynecology; PCP Nurse Practitioner Family; Referring Provider Obstetrics & Gynecology; Visit Provider Obstetrics & Gynecology
DX: O14.14 Severe pre-eclampsia complicating childbirth (principal); Z37.0 Single live birth; O99.344 Other mental disorders complicating childbirth; E28.2 Polycystic ovarian syndrome; F41.9 Anxiety disorder, unspecified; O99.284 Endocrine, nutritional and metabolic diseases complicating childbirth; Z3A.37 37 weeks gestation of pregnancy; O69.81X0 Labor and delivery complicated by cord around neck, without compression, not applicable or unspecified; O99.814 Abnormal glucose complicating childbirth; Z79.899 Other long term (current) drug therapy; Z88.0 Allergy status to penicillin
CPT/HCPCS: 59025; 59050; 82565; 82570; 82962; 84156; 84450; 84460; 84550; 85025; 85027; 86780; 86850; 86900; 86901; J2405